=== PATIENT | female | born 1930 | race Caucasian/White ===

== ENCOUNTER 2017-03-08 13:09 | Inpatient (IN) ==
[2017-03-08 14:10] LABS: MANUAL DIFF NEEDED? NO
[2017-03-08 14:17] LABS: BASO% 0.7 % (0.0-0.8); EOS# 0.43 X1000 (0.0-0.7); EOS% 5.9 % (0.0-10.0); HEMATOCRIT 30.4 % (37.0-47.0); HEMOGLOBIN 9.4 g/dL (12.0-16.0); IMM GRAN# 0.05 X1000 (0.0-0.04); IMM GRAN% 0.7 % (0.0-0.5); LYMPH# 1.31 X1000 (1.2-3.4); LYMPH% 17.8 % (20.5-51.1); MCH 29.7 PG (27-31); MCHC 30.9 g/dL (33-37); MCV 95.9 FL (81-99); MONO# 0.94 X1000 (0.11-0.59); MONO% 12.8 % (1.7-9.3); MPV 10.7 FL (7.4-10.4); NEUT% 62.1 % (42.2-75.2); PLT 143 X1000 (130-400); RBC 3.17 XMIL (4.2-5.4)
[2017-03-08 14:47] LABS: CALCIUM 8.5 mg/dL (8.8-10.2); POTASSIUM 3.2 mmol/L (3.5-5.1); TOTAL BILIRUBIN 0.17 mg/dL (0.20-1.00); TOTAL PROTEIN 5.9 g/dL (6.3-8.3)
--- NOTE | 2017-03-08 14:51 | Diag Imaging Result Doc PS360 ---
EXAM: CHEST-2 VIEWS HISTORY: chf TECHNIQUE: COMPARISON: None. FINDINGS: The lungs are hyperexpanded. There are small bilateral pleural effusions. Patient has a left-sided pacemaker. The heart is mildly enlarged. Mild central vascular prominence. No consolidation. IMPRESSION: Mild cardiomegaly with central vascular prominence and small pleural effusions which could represent congestive failure. Electronically signed by Zaki Holman 03/08/2017 2:48 PM
[2017-03-08] MEDS ORDERED: LASIX IV ONE (16:09)
[2017-03-08 16:14] LABS: URINE CULTURE NEEDED? NO; URINE MICRO REVIEW NEEDED? NO; URINE SOURCE CLEAN CATCH
--- NOTE | 2017-03-08 16:20 | PROVIDER DOCUMENTATION ---
This chart was entered by Ted Rhoades Scribe, acting as scribe for Carl Severino MD. HPI-General Adult - General Stated Complaint: EDEMA Time Seen by Provider: 03/08/17 13:21 Source: patient, RN notes reviewed, halfway records Allergies/Adverse Reactions: Patient Allergies Allergy/AdvReac Type Severity Reaction Status Date / Time No Known Allergies Allergy Verified 03/08/17 14:12 Home Medications: Home Medication List Medication Instructions Recorded Confirmed Last Taken Type Acetaminophen 325 mg PO Q4HR 03/08/17 03/08/17 Unknown History Albuterol 2.5MG/Ipratrop 0.5MG 3 ml .SEE ORDER BID 03/08/17 03/08/17 03/08/17 09 :00 History [Duoneb (A & A)] Amiodarone [Cordarone] 200 mg PO DAILY 03/08/17 03/08/17 03/08/17 09:00 History Aripiprazole 5 mg PO DAILY 03/08/17 03/08/17 03/08/17 09:00 History Aspirin [Aspirin EC] 81 mg PO DAILY 03/08/17 03/08/17 03/08/17 08:00 History Citalopram [Celexa] 40 mg PO DAILY 03/08/17 03/08/17 03/08/17 09:00 History Diltiazem [Cardizem] 240 mg PO BID 03/08/17 03/08/17 03/08/17 09:00 History Docusate Sodium 100 mg PO BID 03/08/17 03/08/17 03/08/17 09:00 History Furosemide [Lasix] 20 mg PO DAILY 03/08/17 03/08/17 03/08/17 08:00 History Omeprazole 20 mg PO BID 03/08/17 03/08/17 03/08/17 06:00 History Polyethylene Glycol 3350 [Miralax] 17 gm PO DAILY 03/08/17 03/08/17 03/08/17 09: 00 History Potassium Chloride 8 meq PO DAILY 03/08/17 03/08/17 03/08/17 09:00 History SIMVAstatin [Zocor] 10 mg PO DAILY 03/08/17 03/08/17 03/08/17 09:00 History Torsemide 10 mg PO HS 03/08/17 03/08/17 03/07/17 20:00 History Torsemide 20 mg PO DAILY 03/08/17 03/08/17 03/08/17 09:00 History - History of Present Illness -Gen Adult Nature of Presenting Problems: patient is a 86 y/o F that presents with increase edema since having ablation and pacemaker insertion early this month. Denies chest pain or fever. Was placed on lasix but continues to have lower extremity edema Location of Pain/Injury: reports: lower extremity (bilateral lower) Pain Radiation: reports: no radiation Quality of Pain: reports: none Severity: reports: moderate Onset/Duration: reports: unsure Timing: reports: still present, constant Context/Activities at Onset: reports: other (recent pacemaker insertion) Modifying Factors: improves with: nothing Associated Symptoms: denies: chest pain, dizziness, fever/chills, genitourinary problems, nausea, shortness of breath, vomiting Similar Symptoms Previously?: Yes Recently seen or treated by another doctor?: Yes Review of Systems - Adult - REVIEW OF SYSTEMS - ADULT Constitutional: denies: chills, fever Eyes: reports: no symptoms reported Ears, Nose, Mouth & Throat: reports: no symptoms reported Cardiovascular: reports: edema. denies: chest pain, palpitations Respiratory: denies: cough, shortness of breath, wheezing Gastrointestinal: denies: abdominal pain, diarrhea, nausea, vomiting Genitourinary: reports: no symptoms reported Musculoskeletal: reports: no symptoms reported Integumentary: reports: no symptoms reported Neurological: reports: no symptoms reported Psychiatric: reports: no symptoms reported Endocrine: reports: no symptoms reported Hematologic/Lymphatic: reports: no symptoms reported Allergic/Immunologic: reports: no symptoms reported All Other Systems: Reviewed and Negative Past History - Adult - PAST MEDICAL HISTORY-ADULT Review of Records: reports: Old Records Reviewed, Nursing Assessment Review, Medications Reviewed Cardiovascular: reports: CAD, CHF, HTN, hyperlipidemia, pacemaker Respiratory: reports: COPD Gastrointestinal: reports: GERD Genitourinary: reports: kidney disease - PRIOR SURGERIES/PROCEDURES Surgical/Procedure History: reports: pacemaker, hysterectomy - IMMUNIZATION STATUS Childhood Immunizations: See Nurse Assessment Flu Vaccine: See Nurse Assessment - FAMILY HISTORY Family History: reviewed, not pertinent - SOCIAL HISTORY Smoking: quit greater than 1 year, cigarettes Living Situation: family Physical Exam-General - PHYSICAL EXAM-ADULT Initial Vital Signs Reviewed: Yes - CONSTITUTIONAL General Appearance: alert, no apparent distress - EYES Eyes: PERRL/EOMI, pink conjunctivae - HEAD, EARS, NOSE, MOUTH & THROAT HENMT: normocephalic/atraumatic, moist mucous membranes, normal ENT inspection - NECK Neck: full range of motion, normal inspection. 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 nml as tested, no motor/sensory deficits - PSYCHIATRIC Psych/Mental Status: normal mood/affect, normal thought content, normal thought process, oriented x 3 Progress - PLAN OF CARE/RESULTS Progress/Plan/Lab Results: Orders Category Date Time Status cxr [CHEST-2 VIEWS] [RAD] Stat Exams 03/08/17 13:28 Ordered CBC WITH ELECTRONIC DIFF [HEME] Stat Lab 03/08/17 13:27 Uncollected CMP [COMPREHENSIVE METABOLIC PANEL] [CHEM] Stat Lab 03/08/17 13:27 Uncollected UA NIMS W/REFLEX CULT [URINALYSIS] Stat Lab 03/08/17 13:28 Uncollected pro-bnp [PRO B-NATRIURETIC PEPTIDE] Stat Lab 03/08/17 13:27 Uncollected Result Diagrams: 03/08/17 13:32 03/08/17 13:32 - REASSESSMENT Reassessment #1 Time Reassessed: 16:18 Status: unchanged - EKG 1 Time of EKG reading by physician:: 13:30 EKG Read and Signed by:: Carl Severino EKG Interpretation (*Must complete 3 of following elements*): Abnormal Rate: 80 Rhythm: Ventricular Paced rhythm QRS: normal ST Wave: normal - CONSULTS/PCP/HOSPITALIST Notification #1 *Consult/PCP/Hospitalist*: Dr Haynes Time Discussed: 16:18 Consult Disposition: Admit (Pt of Dr Nguyen, in halfway and edema getting worse) Departure - Departure Date of Disposition Decision: 03/08/17 Time of Disposition Decision: 16:19 DIAGNOSIS: CHF (congestive heart failure) Qualifiers: Congestive heart failure type: combined Congestive heart failure chronicity: acute on chronic Qualified Code(s): I50.43 - Acute on chronic combined systolic (congestive) and diastolic (congestive) heart failure Disposition: ADMITTED INPATIENT 09 Certified Medical Emergency: Emergent Condition: Stable Referrals and Follow-Ups: Javier Inman [Primary Care Provider] - - Critical Care Note This patient required my direct & personal management of CC.: No This chart was documented by the indicated scribe, (Ted Rhoades, Scribe) and accurately reflects the services I performed and decisions made by me, Carl Severino MD, as attested by the provider's signature.
[2017-03-08] MEDS ORDERED: TYLENOL PO PRN (16:53)
[2017-03-08] MEDS ORDERED: ZOFRAN IV PRN (16:53)
[2017-03-08 16:55] LABS: BILIRUBIN URINE NEGATIVE (NEGATIVE); BLOOD URINE NEGATIVE (NEGATIVE); COLOR STRAW; GLUCOSE URINE NEGATIVE (NEGATIVE); LEUKOCYTES URINE NEGATIVE (NEGATIVE); NITRITE URINE NEGATIVE (NEGATIVE); PH URINE 5.5; PROTEIN URINE NEGATIVE (NEGATIVE); SP GRAVITY URINE 1.008; TURBIDITY URINE CLEAR (CLEAR); UR EPITHELIAL CELLS <10 /HPF (<10); URINE BACTERIA NEGATIVE /HPF; URINE RBC <10 /HPF (<10); URINE WBC <10 /HPF (<10); UROBILINOGEN URINE NORMAL (NORMAL)
[2017-03-08] MEDS ORDERED: KLOR-CON PO ONE (17:15)
--- NOTE | 2017-03-08 18:05 | HISTORY AND PHYSICAL ---
CHIEF COMPLAINT: Bilateral lower extremity edema and pain. HISTORY OF PRESENT ILLNESS: This is an 86-year-old, female with a past medical history of COPD, hypertension, CHF, hypoglycemia, pacemaker placement secondary to arrhythmia, came to the emergency department with a chief complaint of bilateral lower extremity edema and pain. As per the patient, this patient was admitted on February 01, 2017 at [facility] secondary to shortness of breath and she was discharged on the January. But again, she started having swelling at the beginning of this month. She went to see her primary circuit manager, Dr. Nguyen for the very 1st time last Monday. He adjusted her medications and he recommended to come to the emergency department if the swelling gets worse. She has been taking her medications as prescribed and even though she is doing that, she has more swelling and now she is having pain, to the point that she cannot walk. Today she is not complaining of chest pain or shortness of breath. No nausea. No vomiting. No dizziness. No constipation. No diarrhea. We do not have records here in this hospital of this patient. I will consult Dr. Nguyen. I will get an echocardiogram and I will start this patient with gentle diuresis since she has kidney injury. REVIEW OF SYSTEMS: All the 14 points of review of systems were evaluated and all negative except as per HPI. PAST MEDICAL HISTORY: CHF, COPD, hypertension, hypoglycemia, and pacemaker placement on February 21, 2017 secondary to arrhythmia. Blood transfusion a long time ago after hysterectomy. FAMILY HISTORY: Father with lung cancer. Mother with diabetes and seizures. Siblings, hypertension. ALLERGIES: Seasonal allergies. PAST SURGICAL HISTORY: Hemorrhoidectomy, hysterectomy, eye surgery for cataracts, pacemaker placement on February 21, 2017. SOCIAL HISTORY: She states that she used to be a secondhand smoker. Both dad and mom used to smoke in front of her. No drugs. No alcohol. PHYSICAL EXAMINATION: VITAL SIGNS: Temperature 97.8 degrees, pulse 80, respiratory rate 18, blood pressure 149/69, oxygen saturation 95% on room air. HEENT: Head normocephalic. No trauma. PERRLA. NECK: Supple. No JVD. No masses. Central trachea. CHEST: Bilateral lower lung rales. She has a pacemaker in the left upper thorax. No distress. CARDIOVASCULAR: RRR with a 2+ systolic murmur. ABDOMEN: Soft, nontender, nondistended. No hepatosplenomegaly. EXTREMITIES: Three to 4+ lower extremity edema with bilateral lower leg redness and pain to palpation. LABORATORY: WBC 7.3, hemoglobin 9.4, hematocrit 30.4, platelets 143,000. Sodium 143, potassium 3.2, chloride 97, bicarbonate 35, BUN 45, creatinine 1.9, glucose 121, calcium 8.5. BNP 3,935. Albumin 3. ASSESSMENT AND PLAN: 1. Fluid overload, likely secondary to a combination off congestive heart failure and probably kidney injury. We do not have any records here in the hospital from previous admissions. I will get an echocardiogram, an EKG, and also a urinalysis. We need to try to get some information from [facility] as well. She already received 60 mg of furosemide in the emergency department. I will continue with 40 IV daily and I will wait for cardiology's recommendations. 2. Kidney injury. Like I mentioned before, I do not have any records. Will diurese this patient gently. I will wait for the urinalysis. Will monitor. 3. Chronic obstructive pulmonary disease. Not in exacerbation. Will monitor. 4. Hypertension. I will continue with home medication. 5. Congestive heart failure. This patient is on furosemide, torsemide at home but apparently this treatment has been failing. I stopped for now the torsemide and I will continue with furosemide IV. Cardiology has been consulted. 6. History of arrhythmia with pacemaker placement. At this point I do not know what kind of arrhythmia she had before. She is also on diltiazem and amiodarone. Will continue with the same management for now. 7. History of hypoglycemia. Will monitor the blood sugar daily. 8. Hypokalemia. I will replace the potassium. Also she has been on potassium p.o. at home. 9. Possible dyslipidemia. I will continue with statin. 10. Constipation. Continue with stool softener. Further recommendations depending on her hospital course. cc: Charlie Babb MD
[2017-03-08] MEDS: COLACE PO SCH (20:32)
[2017-03-08] MEDS: HEPARIN SUBQ SCH (20:32)
--- NOTE | 2017-03-09 05:23 | EKG Report ---
Test Performed on : 03/08/2017 5:47:23 PM Test Reason : arrhytmia Blood Pressure : / mmHG Vent. Rate : 080 BPM Atrial Rate : 092 BPM P-R Int : 000 ms QRS Dur : 158 ms QT Int : 556 ms P-R-T Axes : 000 -64 081 degrees QTc Int : 641 ms Ventricular-paced rhythm Biventricular pacemaker detected Abnormal ECG When compared with ECG of 08-MAR-2017 13:30, (Unconfirmed) No significant change was found Confirmed by Kevin MICHAUD, Keanu Ray ([id number]) on 03/09/2017 3:00:08 PM
--- NOTE | 2017-03-09 05:32 | EKG Report ---
Test Performed on : 03/08/2017 1:30:43 PM Test Reason : No Order in PPS Blood Pressure : / mmHG Vent. Rate : 080 BPM Atrial Rate : 080 BPM P-R Int : 000 ms QRS Dur : 160 ms QT Int : 490 ms P-R-T Axes : 000 -86 089 degrees QTc Int : 565 ms Ventricular-paced rhythm Abnormal ECG No previous ECGs available Unconfirmed Result
[2017-03-09 06:58] LABS: MANUAL DIFF NEEDED? NO
[2017-03-09 07:18] LABS: BASO% 0.9 % (0.0-0.8); HEMATOCRIT 26.3 % (37.0-47.0); IMM GRAN# 0.03 X1000 (0.0-0.04); IMM GRAN% 0.5 % (0.0-0.5); LYMPH# 1.08 X1000 (1.2-3.4); LYMPH% 18.8 % (20.5-51.1); MCH 29.3 PG (27-31); MCHC 30.4 g/dL (33-37); MCV 96.3 FL (81-99); MONO# 0.73 X1000 (0.11-0.59); MONO% 12.7 % (1.7-9.3); NEUT% 60.1 % (42.2-75.2); PLT 138 X1000 (130-400); RBC 2.73 XMIL (4.2-5.4)
[2017-03-09 07:24] LABS: HDL 80 mg/dL (45-65); LDL 67 mg/dL; TRIGLYCERIDES 84 mg/dL (35-135); VLDL 17 mg/dL
[2017-03-09 07:36] LABS: ALBUMIN 2.7 g/dL (3.5-5.0); CALCIUM 8.4 mg/dL (8.8-10.2); POTASSIUM 2.9 mmol/L (3.5-5.1); TOTAL BILIRUBIN 0.18 mg/dL (0.20-1.00); TOTAL PROTEIN 5.2 g/dL (6.3-8.3)
[2017-03-09] MEDS ORDERED: KLOR-CON PO ONE (07:54)
[2017-03-09] MEDS ORDERED: CARDIZEM CD PO SCH (09:00)
[2017-03-09] MEDS: LASIX IV SCH (09:08)
[2017-03-09] MEDS: COLACE PO SCH ×2 (09:08→22:49)
[2017-03-09] MEDS: ASPIRIN EC PO SCH (09:08)
[2017-03-09] MEDS: CORDARONE PO SCH (09:08)
[2017-03-09] MEDS: HEPARIN SUBQ SCH ×2 (09:08→22:49)
[2017-03-09] MEDS: CELEXA PO SCH (09:08)
[2017-03-09] MEDS: ZOCOR PO SCH (09:08)
[2017-03-09] MEDS: MIRALAX PO SCH (09:09)
[2017-03-09] MEDS: ABILIFY PO SCH (09:09)
[2017-03-09] MEDS: DUONEB (A & A) INH PRN ×3 (10:09→20:01)
--- NOTE | 2017-03-09 10:30 | CONSULTATION ---
DATE OF CONSULTATION: 03/09/2017 REASON FOR CONSULTATION: Cardiology was consulted for heart failure and pedal edema. HISTORY OF PRESENT ILLNESS: Ms. Yumiko Montelongo is an 86-year-old, lady who was recently admitted and discharged from [facility]. She had a permanent pacemaker implantation. She has chronic atrial fibrillation and COPD. When I saw her a couple of days back, she was noted to have increasing pedal edema. At that time, I had given her Zaroxolyn 2 doses and increased her dose of torsemide. When I had seen her, she had no significant shortness of breath. However, she was wheelchair bound. She was in the rehab facility. She is admitted with complaints of bilateral lower extremity edema and pain which had worsened, in addition to shortness of breath. She recently had a permanent pacemaker implantation as well. Cardiac history as below. She is not anticoagulated even though she has atrial fibrillation, given her history of frequent falls. At the time of my examination, the patient was with her daughter. She did not complain of any chest pain. REVIEW OF SYSTEMS: A 14 point review of systems was done. GI System: There is no history of nausea, vomiting, diarrhea. There is no history of hematemesis or melena. Central Nervous System: No focal weakness to suggest a CVA or TIA. Genitourinary System: There is no dysuria or hematuria. Respiratory System: There is no history of cough or hemoptysis. PAST MEDICAL HISTORY: 1. Atrial fibrillation. On 02/02/2017, she underwent an ablation of the AV node and status post permanent pacemaker implantation with a [employer] device on 02/21/2017. 2. Chronic pedal edema. 3. Diastolic heart failure. 4. COPD. 5. Shortness of breath. 6. Hypertension. 7. Hyperlipidemia. 8. Diabetes. 9. Chronic renal insufficiency. 10. Carotid bruits. 11. Bilateral conductive hearing loss. 12. Personal history of frequent falls. 13. Hemorrhoidectomy. 14. Hysterectomy. 15. Cataract surgery. SOCIAL HISTORY: She states she used to be a secondhand smoker. There is no history of alcohol abuse. HOME MEDICATIONS: Included amiodarone 200 mg a day, aspirin 81 mg a day, diltiazem 240, torsemide 20 + 10, Zocor 10, Abilify 5, Celexa, Prilosec 20, milk of magnesia, and recent 2 doses of metolazone. PHYSICAL EXAMINATION: Vital Signs: Blood pressure was 139/54. Cardiovascular System: Normal jugular venous pressure. First and second heart sounds were heard. There is no S3 gallop. Respiratory System: Distant breath sounds. Scattered wheeze. Abdomen: Soft, nontender. There was no guarding or rigidity. Bowel sounds were heard. Central Nervous System: Alert and was moving all 4 extremities. Extremities: Examination of extremities revealed pitting pedal edema up to her rodas. In addition, there was tenderness noted on both lower extremities. HEENT: Atraumatic. Pupils were reacting to light. LABORATORY EXAMINATION: WBC 5.75, hemoglobin 8, hematocrit 26, platelet count 138,000. Chemistry: Sodium 144, potassium 2.9, BUN 46, creatinine 1.8. ProBNP 3935. Albumin was low at 2.7. HDL 80. ASSESSMENT AND PLAN: Ms. Yumiko Montelongo is an 86-year-old, lady with history of multiple medical problems in addition to a history of atrial fibrillation status post atrioventricular node ablation and permanent pacemaker implantation, history of diastolic heart failure, hypertension, frequent falls. Comes in with complaints of persistent increasing pedal edema and shortness of breath. Chest x-ray, mild effusion was also noted. Patient was started on intravenous Lasix. PROBLEM LIST: 1. She has significant hypokalemia that could have been because off the metolazone which was given as an outpatient for 2 doses, started recently. We will replete with potassium chloride IV 40 mEq and I will check her BMP later this after and in the morning. 2. Chronic pedal edema, could be multifactorial given anemia as well as dependent edema. Regardless, we will check DVT to make sure there is no deep vein thrombosis, and continue with the Lasix which started at IV 40. This could also be related to her hemoglobin being low. Hemoglobin and hematocrit were 8 and 26.3. She may benefit from a unit of blood transfusion but, however, we will check a BMP in the morning. She is not on any anticoagulation therapy. There is no obvious bleeding. She is also hypoalbuminemic. This, if corrected, should also help with her edema. 3. We will get an echocardiogram to assess cardiac and valvular function. 4. As far as medications are concerned, she has recently been started on diltiazem. We will discontinue diltiazem in the event that it could be a factor to cause her pedal edema. We will put her on Toprol-XL. Thank you for the consult. We will follow hospital course. cc: Keven Nguyen MD
[2017-03-09] MEDS ORDERED: ALBUMIN 25% IV ONE (11:07)
[2017-03-09] MEDS ORDERED: POTASSIUM CHLORIDE 20 MEQ/SWI 20 MEQ/100 ML IVPB IV SCH (12:00)
[2017-03-09] MEDS: POTASSIUM CHLORIDE 20 MEQ/SWI 20 MEQ/100 ML IVPB IV SCH ×2 (12:35→14:34)
--- NOTE | 2017-03-09 14:51 | PROGRESS NOTE ---
DATE: 03/09/2017 SUBJECTIVE: This patient is resting comfortably in bed. She is not complaining of shortness of breath. She is still complaining of pain at the level of the lower extremity with swelling. Family members at the bedside. No acute events overnight. OBJECTIVE: Vital Signs: Temperature 98.1 degrees, pulse 84, respiratory rate 20, blood pressure 139/54, oxygen saturation 95% on 2 L of nasal cannula. HEENT: Head normocephalic. No trauma. PERRLA. Neck: Supple. No JVD. No masses. Central trachea. Chest: Bilateral lower lung rales. She has a pacemaker in the left upper thorax, no distress. Cardiovascular: RRR. 2+ systolic murmur. Abdomen: Soft, nontender, nondistended. No hepatosplenomegaly. Obese. Extremities: There is 3+ lower extremity edema bilaterally with leg redness and pain to palpation. LABORATORY: WBC 5.7, hemoglobin 8, hematocrit 26.3, platelet 138. Sodium 144, potassium 2.9, chloride 100, bicarbonate 37, BUN 46, creatinine 1.8, glucose 102, calcium 8.4, albumin 2.7. ASSESSMENT: 1. Fluid overload. This can be multifactorial, likely a combination of congestive heart failure and kidney injury. We do not have any records yet from previous hospitalization in another hospital. Pending echocardiogram, Cardiology Department is following this patient. I will continue with Lasix intravenous daily. 2. Kidney injury, stable. We will continue with the same management for now. The creatinine is about the same compared with yesterday. 3. Chronic obstructive pulmonary disease not in exacerbation. We will monitor. 4. Hypertension. Continue with home medications. Diltiazem has been stopped and replaced with Toprol-XL. 5. Congestive heart failure. The patient is on furosemide intravenous. Cardiology Department is following this patient pending echocardiogram results. 6. History of arrhythmia with pacemaker placement. At this point, I do not know what kind of arrhythmia she had before. For now, we will continue with amiodarone and Toprol-XL. 7. History of hypoglycemia. We will monitor. 8. Hypokalemia. I replaced the potassium today 40 mEq intravenous and oral. 9. Possible dyslipidemia. Continue with statins. 10. Constipation. Continue with stool softener. PLAN: Because of the lower extremity edema and pain, we will ask for a Doppler ultrasound of the lower extremities to rule out DVT. She will get albumin and that probably will help with her edema. Since the hemoglobin dropped from 9.4 to 8, I will ask for occult blood in the stool to rule out GI bleed. cc: Charlie Babb MD
[2017-03-09 16:02] LABS: CALCIUM 8.6 mg/dL (8.8-10.2); POTASSIUM 4.4 mmol/L (3.5-5.1)
--- NOTE | 2017-03-09 16:07 | ECHO REPORT ---
ORDER DATE: 03/09/2017 MEASUREMENTS: 1. Left ventricular end-diastolic diameter 3.5, end-systolic diameter 2.6, septal thickness 1.4, posterior wall thickness 1.4, left atrium 4.7, aortic root 3.2. SUMMARY: 1. Fair quality study. 2. Aortic valve is trileaflet and demonstrates mild to moderate sclerosis with mildly reduced but visibly adequate aortic valve opening on 2-dimensional images. Peak gradient across aortic valve is 18 mmHg with a mean gradient of 10 mmHg suggesting minimal aortic stenosis. Mild mitral annular calcification is demonstrated. There is very mild mitral regurgitation. Tricuspid and pulmonic valves are without structural abnormality with mild tricuspid regurgitation and trace tricuspid regurgitation, and pulmonic valves are without structural abnormality with mild tricuspid regurgitation and trace pulmonic insufficiency. The estimated systolic PA pressure by Doppler is 35 to 40 mmHg. The aortic root is normal in size. 3. Normal left ventricular chamber size with mild concentric left hypertrophy is demonstrated. Estimated left ejection fraction appears to be greater than 65%. No regional wall motion abnormalities are evident. Doppler suggests grade 1 left ventricular diastolic dysfunction. Left atrium is mildly enlarged. Right atrium and right ventricle are normal in size with normal right ventricular systolic function. 4. No pericardial effusion. 5. Appearance of inferior vena cava suggests normal central venous pressure. 6. Sinus rhythm during study. CONCLUSIONS: 1. Aortic valve sclerosis with minimal stenosis. 2. Mild mitral annular calcification with very mild mitral regurgitation. 3. Mild tricuspid regurgitation with estimated systolic PA pressure of 35-40 mmHg. 4. Mild concentric left hypertrophy with estimated ejection fraction at least 65%. 5. Grade 1 left ventricular diastolic dysfunction. 6. Mild left atrial enlargement. 7. Pacemaker lead evident in right ventricle. cc: MD Charlie Epps MD
[2017-03-10 07:18] LABS: MANUAL DIFF NEEDED? NO
[2017-03-10 07:28] LABS: BASO% 1.5 % (0.0-0.8); EOS# 0.36 X1000 (0.0-0.7); EOS% 4.9 % (0.0-10.0); HEMATOCRIT 27.1 % (37.0-47.0); HEMOGLOBIN 8.1 g/dL (12.0-16.0); IMM GRAN# 0.07 X1000 (0.0-0.04); LYMPH# 1.09 X1000 (1.2-3.4); LYMPH% 14.9 % (20.5-51.1); MCHC 29.9 g/dL (33-37); MCV 97.1 FL (81-99); MONO# 0.97 X1000 (0.11-0.59); MONO% 13.2 % (1.7-9.3); NEUT% 64.5 % (42.2-75.2); PLT 149 X1000 (130-400); RBC 2.79 XMIL (4.2-5.4)
[2017-03-10 07:45] LABS: CALCIUM 8.7 mg/dL (8.8-10.2); POTASSIUM 4.1 mmol/L (3.5-5.1)
[2017-03-10] MEDS: DUONEB (A & A) INH PRN ×3 (08:14→23:22)
[2017-03-10] MEDS: LASIX IV SCH ×2 (08:38→21:10)
[2017-03-10] MEDS ORDERED: LASIX IV ONE (09:04)
--- NOTE | 2017-03-10 09:06 | Diag Imaging Result Doc PS360 ---
EXAM: CHEST-PORTABLE HISTORY: Shortness of breath TECHNIQUE: COMPARISON: 03/08/2017 FINDINGS: There is a left-sided pacemaker. There is vascular distention. There may be underlying infiltrates in the lung bases. No pleural effusions identified. IMPRESSION: Pulmonary edema with possible underlying basilar infiltrates. Electronically signed by Zaki Holman 03/10/2017 9:04 AM
--- NOTE | 2017-03-10 09:48 | EKG Report ---
Test Performed on : 03/10/2017 09:00:24 AM Test Reason : SOB Blood Pressure : / mmHG Vent. Rate : 080 BPM Atrial Rate : 227 BPM P-R Int : 000 ms QRS Dur : 146 ms QT Int : 520 ms P-R-T Axes : 000 -64 074 degrees QTc Int : 599 ms Ventricular-paced rhythm Biventricular pacemaker detected Abnormal ECG When compared with ECG of 08-MAR-2017 17:47, No significant change was found Confirmed by Kevin MICHAUD, Keanu Ray ([id number]) on 03/10/2017 11:18:11 AM
[2017-03-10] MEDS: MIRALAX PO SCH (10:26)
[2017-03-10] MEDS: COLACE PO SCH ×2 (10:26→20:15)
[2017-03-10] MEDS: ABILIFY PO SCH (10:26)
[2017-03-10] MEDS: KLOR-CON PO SCH (10:26)
[2017-03-10] MEDS: CELEXA PO SCH (10:27)
[2017-03-10] MEDS: CORDARONE PO SCH (10:27)
[2017-03-10] MEDS: ASPIRIN EC PO SCH (10:27)
[2017-03-10] MEDS: TOPROL XL PO SCH (10:27)
[2017-03-10] MEDS: ZOCOR PO SCH (10:27)
--- NOTE | 2017-03-10 11:33 | Extremity Venous Study ---
PROCEDURE NAME: Venous U/S Bilateral Legs - 03/09/2017 REQUESTING PHYSICIAN: Dr. Nguyen. PROFESSOR OF MATHEMATICS: Heron. INDICATIONS: Bilateral lower extremity edema. PROCEDURE: Bilateral lower extremity venous duplex color-flow imaging. EQUIPMENT: Makeblockid E9 ultrasound system with a 9 LD transducer. FINDINGS: Images of bilateral lower extremity venous systems were obtained in both sagittal and transverse planes. Doppler was used to evaluate veins for spontaneity, phasicity, respiratory excursion, and digital augmentation. RESULTS: Normal venous compression, normal venous flow. No obvious superficial or deep venous thrombosis noted. There is some mild pulsatility noted in the bilateral common femoral veins, which may represent a central cardiac issue. INTERPRETATION: No obvious superficial or deep venous thrombosis noted to bilateral lower extremities. There is some mild pulsatility noted to bilateral common femoral veins, which may represent a central cardiac issue. I would recommend handling this clinically. cc: MD Keven Ferro MD
[2017-03-10] MEDS: XANAX PO PRN ×2 (11:50→23:44)
[2017-03-10] MEDS ORDERED: NS 500 ML ONE (12:22)
--- NOTE | 2017-03-10 15:03 | PROGRESS NOTE ---
DATE: 03/10/2017 SUBJECTIVE: When I evaluated this patient she was tachypneic, she has some rales at the level of the mid and lower lungs, and also she looks anxious. I went ahead and I put this patient on Xanax 0.25 mg p.o. b.i.d., and also I gave her an extra dose of furosemide, and after that, this patient felt better. OBJECTIVE: Vital Signs: Temperature 98.4 degrees, pulse 78, respiratory rate 22, blood pressure 143/67, oxygen saturation 100% on 2 L of nasal cannula. HEENT: Normocephalic. No trauma. PERRLA. Neck: Supple. No JVD. No masses. Central trachea. Chest: Bilateral mid and lower lungs rales. She has a pacemaker at the level of the left upper thorax. No distress. Cardiovascular: RRR, 2+ systolic murmur. Abdomen: Soft, nontender, nondistended. No hepatosplenomegaly. Obese. Extremities: 3+ lower extremity edema bilaterally with redness and pain to palpation. LABORATORY: WBC 7.3, hemoglobin 8.1, hematocrit 27.1, platelets 149,000. Sodium 144, potassium 4.1, chloride 99, bicarbonate 32, BUN 48, creatinine 1.8, glucose 105, calcium 8.7. ASSESSMENT AND PLAN: 1. Pulmonary edema. I gave her an extra dose of furosemide today, and now she feels better, we will continue with the same management. Cardiology Department is following this patient. 2. Likely diastolic heart failure. We will continue with diuresis, Cardiology Department is following this patient. 3. Kidney injury. Stable. We will continue with the same management for now. The creatinine is about the same compared with the previous days. 4. Chronic obstructive pulmonary disease, not in exacerbation. We will monitor. 5. Hypertension. Continue with home medication. Diltiazem has been stopped and replaced with Toprol-XL. 6. History of atrial fibrillation, she underwent an ablation of the atrioventricular node and status post permanent pacemaker implantation with [employer] device on 02/21/2017. 7. History of hypoglycemia. We will monitor. 8. Hypokalemia. Resolved. 9. Dyslipidemia. Continue with statins. 10. Constipation. Continue with stool softener. 11. Anxiety. I placed this patient on Xanax low dose. cc: Charlie Babb MD
--- NOTE | 2017-03-10 16:00 | Diag Imaging Result Doc PS360 ---
EXAM: US RENAL 2 (RETROPER) COMPLETE HISTORY: chloe/arf TECHNIQUE: Transabdominal COMMENT: The right kidney is 9.1 x 3.6 x 3.4 cm the left is 9.1 x 4.6 x 4.5 cm. There is a cyst in the left kidney measuring 7.2 cm in diameter. The bladder is not distended. There is no evidence of hydronephrosis. IMPRESSION: Left renal cyst. Electronically signed by Dennys Sylvester 03/10/2017 3:58 PM
[2017-03-10] MEDS: HEPARIN SUBQ SCH ×2 (16:20→20:17)
[2017-03-10 17:58] LABS: URINE MICRO REVIEW NEEDED? NO; URINE SOURCE CATH
[2017-03-10 18:06] LABS: BILIRUBIN URINE NEGATIVE (NEGATIVE); BLOOD URINE LARGE (NEGATIVE); COLOR YELLOW; GLUCOSE URINE NEGATIVE (NEGATIVE); LEUKOCYTES URINE TRACE (NEGATIVE); NITRITE URINE NEGATIVE (NEGATIVE); PROTEIN URINE TRACE mg/dL (NEGATIVE); TURBIDITY URINE CLEAR (CLEAR); UR EPITHELIAL CELLS <10 /HPF (<10); URINE BACTERIA NEGATIVE /HPF; URINE RBC TNTC /HPF (<10); URINE WBC <10 /HPF (<10); UROBILINOGEN URINE NORMAL (NORMAL)
[2017-03-10 18:23] LABS: UR CREAT RANDOM 64.1 mg/dL (11-20); UR PROT RANDOM 15.3 mg/dL
--- NOTE | 2017-03-10 18:39 | CONSULTATION ---
DATE OF CONSULTATION: 03/10/2017 REASON FOR CONSULTATION: Acute kidney injury versus chronic kidney injury. HISTORY OF PRESENT ILLNESS: Ms. Montelongo is an 86-year-old, white female with obesity, diabetes, hypertension, COPD. She has been residing in a nursing facility in [place]. She has had some problems with swelling that has been chronic but modest. She underwent pacemaker placement on the 21 of February following a previous admission in late January at [facility] for shortness of breath. Following that pacemaker placement she has had progressively worsening swelling which did not wilbert with any intervention. They saw Dr. Nguyen in the office who prescribed oral diuretics but failing that he advised her to come to the hospital. She was brought to the emergency room on the and subsequently admitted. Her initial chest x-ray from the demonstrated mild cardiomegaly and vascular prominence with small effusions. No overt pulmonary edema was noted. She underwent echocardiogram the following morning which disclosed an LVEF of 65% with PA pressures in the 35-40% range. Since that time she has been treated with gentle diuretics and is roughly 2 L negative though her intake is poorly recorded. In this context her creatinine has been abnormal since admission but stable at 1.8 with BUN in the mid 40s. She underwent kidney ultrasound today which demonstrated small bilateral kidneys at 9.1 cm bilaterally but no hydronephrosis or other acute findings. We were asked to see her to assist with her management. PAST MEDICAL HISTORY: As above. CURRENT MEDICATIONS: Acetaminophen, albuterol, ipratropium, alprazolam, amiodarone, Abilify, aspirin, citalopram, docusate, heparin, metoprolol, ondansetron, polyethylene glycol, potassium chloride, simvastatin, albumin x1. ALLERGIES: None. SOCIAL HISTORY: As above. She is attended to by her daughter. No alcohol or tobacco. FAMILY HISTORY: Noncontributory. REVIEW OF SYSTEMS: Noncontributory. PHYSICAL EXAMINATION: Vital Signs: Blood pressure 143/67, heart rate 80, respirations 22, afebrile. General: She is an obese, white female, sitting at 45 degrees, in no acute distress. She is hard of hearing. Skin: Warm and dry with some bruising and ecchymoses. Conjunctivae are pink. Pupils are equal. Oropharynx is moist. Neck: Veins are distended. Heart: Irregular. Chest: Chest and left arm are in a sling. Lungs: Difficult to examine but no crackles. Abdomen: Obese and soft. Bowel sounds are present. No organomegaly. Extremities: 3+ edema. No clubbing or cyanosis. Left arm greater than right arm. Legs are symmetrical. Neurologic Examination: Grossly nonfocal. LABORATORY DATA: Sodium 144, potassium 4.1, chloride 99, bicarbonate 32, BUN 48, creatinine 1.8, albumin 2.7 yesterday. IMPRESSION: Chronic kidney disease stage 3B. I do not have any old data for comparison but the stability of her labs since admission as well as her renal ultrasound results certainly suggest that this is a chronic condition. Her volume overload is a consequence of her chronic kidney disease and her cardiac disease as well as dietary indiscretion while she has been in the [facility]. Her albumin is low and she is certainly prone to significant third spacing on the basis of her low albumin. As such, I will add albumin and furosemide 80 mg twice daily, and observe her response over the weekend. We will check urine electrolytes, urea. No other studies are required. cc: Brett Neff MD
[2017-03-10] MEDS: ALBUMIN 25% IV SCH (18:48)
[2017-03-10] MEDS ORDERED: AYR NASAL SPRAY NAS PRN (18:54)
[2017-03-11] MEDS: DUONEB (A & A) INH PRN ×5 (04:04→22:46)
[2017-03-11] MEDS: LASIX IV SCH ×2 (04:26→17:44)
[2017-03-11] MEDS ORDERED: XANAX PO ONE (05:18)
[2017-03-11 06:34] LABS: HEMATOCRIT 24.7 % (37.0-47.0); HEMOGLOBIN 7.5 g/dL (12.0-16.0); MCH 29.6 PG (27-31); MCHC 30.4 g/dL (33-37); MCV 97.6 FL (81-99); MPV 10.9 FL (7.4-10.4); RBC 2.53 XMIL (4.2-5.4)
[2017-03-11 07:05] LABS: ALBUMIN 3.8 g/dL (3.5-5.0); CALCIUM 9.4 mg/dL (8.8-10.2); POTASSIUM 3.6 mmol/L (3.5-5.1)
[2017-03-11] MEDS ORDERED: NS 250 ML IV PRN (08:54)
[2017-03-11] MEDS: ABILIFY PO SCH (09:10)
[2017-03-11] MEDS: ZOCOR PO SCH (09:11)
[2017-03-11] MEDS: CELEXA PO SCH (09:11)
[2017-03-11] MEDS: HEPARIN SUBQ SCH ×2 (09:11→20:26)
[2017-03-11] MEDS: TOPROL XL PO SCH (09:11)
[2017-03-11] MEDS: ASPIRIN EC PO SCH (09:11)
[2017-03-11] MEDS: COLACE PO SCH ×2 (09:11→20:26)
[2017-03-11] MEDS: ALBUMIN 25% IV SCH (09:11)
[2017-03-11] MEDS: KLOR-CON PO SCH (09:11)
[2017-03-11] MEDS: MIRALAX PO SCH (09:11)
[2017-03-11] MEDS: CORDARONE PO SCH (09:11)
[2017-03-11] MEDS: XANAX PO PRN ×2 (12:42→23:37)
[2017-03-11] MEDS ORDERED: LASIX IV ONE (13:06)
[2017-03-11] MEDS ORDERED: LASIX ONE (13:06)
--- NOTE | 2017-03-11 13:06 | PROGRESS NOTE ---
DATE: 03/11/2017 SUBJECTIVE: This patient is resting comfortably in bed. She is still a little bit tachypneic, but she is not complaining of shortness of breath at this moment. Will continue with Xanax and I will continue with the same dose of furosemide as per Nephrology Department. It looks like she is getting better. OBJECTIVE: Vital Signs: Temperature 98.1 degrees, pulse 85, respiratory rate 20, blood pressure 171/64, oxygen saturation 97% on 3L nasal cannula. HEENT: Head normocephalic. No trauma. PERRLA. Neck: Supple. No JVD. No masses. Central trachea. Chest: Bilateral lower lung rales, but compared with yesterday, she is much better. She has a pacemaker at the level of the left upper thorax. No distress. Cardiovascular: RRR. A 2+ systolic murmur. Abdomen: Soft, nontender, nondistended. No hepatosplenomegaly. Obese. Extremity: Lower extremity edema 3+ bilaterally with redness and pain to palpation. LABORATORY: WBC 8.5, hemoglobin 7.5, hematocrit 24.7, platelets 164,000. Sodium 145, potassium 3.6, chloride 97, bicarbonate 36, BUN 50, creatinine 1.8, glucose 121, calcium 9.4, albumin 3.8. ASSESSMENT AND PLAN: 1. Pulmonary edema. This is getting better. We will continue with the same dose of furosemide for today. Cardiology Department is following this patient closely. 2. Likely diastolic heart failure. Continue with diuresis. 3. Kidney injury, stable. Probably, this is her baseline. We do not have previous records. 4. Chronic obstructive pulmonary disease, not in exacerbation. We will monitor. Continue with breathing treatment. 5. Hypertension. Continue with home medication. Diltiazem has been stopped and replaced with Toprol-XL. 6. History of atrial fibrillation. She underwent and ablation of the AV node and status post permanent pacemaker implantation with [employer] device on 02/21/2017. 7. Hypokalemia, resolved. 8. Dyslipidemia. Continue with statins. 9. Constipation. Continue with stool softener. 10. Anxiety. I will place this patient on Xanax low dose. 11. Anemia. This patient's hemoglobin is 7.5. I will transfuse this patient with 1 PRBC. cc: Charlie Babb MD
[2017-03-11 13:18] LABS: ALLEN TEST YES; BE 12.9 mmoll (-3.0-3.0); BLOOD TYPE ARTERIAL; DRAW SITE R RADIAL; METHB 1.2 % (0.0-1.5); O2(CT) 12.8 mL/dL (15.0-23.0); PO2(98.6) 136 mmHg (60-100); SAMPLE BLOOD; SAO2 99.5 % (95.0-100.0); THB 9.2 g/dL (11.5-17.4)
[2017-03-11 13:20] LABS: MODALITY NRB
[2017-03-11 13:24] LABS: PCO2(98.6) 125 mmHg (35-45); pH(98.6) 7.16 (7.35-7.45)
--- NOTE | 2017-03-11 13:24 | Diag Imaging Result Doc PS360 ---
EXAM: CHEST-PORTABLE HISTORY: sob TECHNIQUE: AP portable at 1310 COMMENT: There is cardiomegaly and bilateral basilar pulmonary edema. The pulmonary vascularity is engorged centrally. Compared to 03/10/2017 there has been no significant change. IMPRESSION: CHF stable since previous study. Electronically signed by Dennys Sylvester 03/11/2017 1:22 PM
--- NOTE | 2017-03-11 13:48 | PROGRESS NOTE ---
DATE: 03/11/2017 SUBJECTIVE: She had some shortness of breath overnight, but it is better this morning. No chest pain. OBJECTIVE: Vital Signs: Blood pressure 171/64, heart rate 85, respirations 20, afebrile. Intake none recorded; output 2 L. General: On physical exam, no acute distress. Skin: Warm and dry. Eyes: Conjunctivae are pink. Pupils are equal and round. Neck: Neck veins are not appreciated today. Heart: Regular without gallops or murmurs. Lungs: Have equal breath sounds. No crackles or wheezes. Abdomen: Soft and nontender. Bowel sounds are present. Extremities: Have 2+ edema. No clubbing or cyanosis. Left arm greater than right. LABORATORY DATA: Sodium 145, potassium 3.6, chloride 97, bicarbonate 36, BUN 50, creatinine 1.8, hemoglobin 7.5. IMPRESSION: 1. Volume overload. She received albumin yesterday and I increased her furosemide dose. I will cancel any further albumin because her albumin is now 3.8, but will continue the 80 mg intravenous twice daily of furosemide through tomorrow. Her bicarbonate is rising and this may be a consequence of diuresis. Again, we will observe, but plan to continue her diuretics as she is still significantly volume overloaded. 2. Chronic kidney disease, unchanged. 3. Anemia. We will check iron stores, B 12, folate, and stool sample. Replace as needed. Will check an erythropoietin level. cc: Brett Neff MD
[2017-03-12] MEDS: DUONEB (A & A) INH PRN ×6 (02:48→23:06)
[2017-03-12] MEDS: LASIX IV SCH ×2 (05:04→16:41)
[2017-03-12 05:42] LABS: MANUAL DIFF NEEDED? NO
[2017-03-12 06:12] LABS: BASO% 0.8 % (0.0-0.8); EOS# 0.26 X1000 (0.0-0.7); EOS% 3.4 % (0.0-10.0); HEMOGLOBIN 7.5 g/dL (12.0-16.0); IMM GRAN# 0.06 X1000 (0.0-0.04); IMM GRAN% 0.8 % (0.0-0.5); LYMPH# 1.39 X1000 (1.2-3.4); LYMPH% 18.4 % (20.5-51.1); MCV 96.5 FL (81-99); MONO# 1.06 X1000 (0.11-0.59); MPV 11.4 FL (7.4-10.4); NEUT% 62.6 % (42.2-75.2); PLT 184 X1000 (130-400); RBC 2.59 XMIL (4.2-5.4)
[2017-03-12 06:23] LABS: ALBUMIN 3.7 g/dL (3.5-5.0); CALCIUM 9.4 mg/dL (8.8-10.2); POTASSIUM 3.5 mmol/L (3.5-5.1)
[2017-03-12 06:28] LABS: FERRITIN 245 ng/mL (13-150)
[2017-03-12 06:34] LABS: IRON SATURATION 14 %; TIBC 147 ug/dL; TOTAL IRON 21 ug/dL (49-151); UNBOUND IRON 126 ug/dL (112-346)
--- NOTE | 2017-03-12 07:03 | Diag Imaging Result Doc PS360 ---
EXAM: CHEST-PORTABLE HISTORY: CHF TECHNIQUE: AP portable at 0500 COMMENT: The alveolar pulmonary edema which was present on 03/11/2017 has diminished slightly. Otherwise has been no significant change. IMPRESSION: Improved pulmonary edema. Electronically signed by Dennys Sylvester 03/12/2017 7:00 AM
[2017-03-12] MEDS: TOPROL XL PO SCH (09:13)
[2017-03-12] MEDS: HEPARIN SUBQ SCH ×2 (09:13→20:04)
[2017-03-12] MEDS: CELEXA PO SCH (09:13)
[2017-03-12] MEDS: ABILIFY PO SCH (09:13)
[2017-03-12] MEDS: ZOCOR PO SCH (09:13)
[2017-03-12] MEDS: KLOR-CON PO SCH (09:13)
[2017-03-12] MEDS: CORDARONE PO SCH (09:13)
[2017-03-12] MEDS: ASPIRIN EC PO SCH (09:13)
[2017-03-12] MEDS: COLACE PO SCH ×2 (09:13→20:04)
[2017-03-12] MEDS: MIRALAX PO SCH (09:14)
--- NOTE | 2017-03-12 10:37 | PROGRESS NOTE ---
DATE: 03/12/2017 SUBJECTIVE: This patient is resting comfortably in bed. She was transferred to the CIC unit yesterday because this patient started having severe shortness of breath. She was placed on the BiPAP machine. This is likely secondary to fluid overload/pulmonary edema. Nephrology department and cardiology department are following this patient as well. For now, we will continue with IV Lasix. We will continue to monitor this patient closely. OBJECTIVE: Vital Signs: Temperature 97.7, pulse 80, respiratory rate 20, blood pressure 151/64, oxygen saturation 100% on BiPAP machine. HEENT: Head normocephalic. No trauma. PERRLA. Neck: Supple. No JVD. No masses. Central trachea. Chest: Decreased breath sounds at the bases with bilateral rales, mostly at the bases as well. Cardiovascular: RRR. Abdomen: Soft, nontender, nondistended. No hepatosplenomegaly. Extremities: There is 3+ lower extremity and upper extremity edema. Neurological Examination: The patient is alert. She is oriented x3. No focal deficits. Laboratory: WBC 7.5, hemoglobin 7.5, hematocrit 25, platelets 184,000. Sodium 146, potassium 3.5, chloride 99, bicarbonate 35, BUN 56, creatinine 1.7, glucose 84, calcium 9.4. Iron 21, TIBC 147, ferritin 245. ASSESSMENT AND PLAN: 1. Pulmonary edema. This is getting better. Continue with the BiPAP machine and Lasix for now. Cardiology and nephrology departments are following this patient closely. She feels a little bit better compared with yesterday. 2. Likely diastolic heart failure. Continue with diuresis. 3. Kidney injury, stable. Probably this is her baseline. We do not have previous records. 4. Chronic obstructive pulmonary disease, not in exacerbation. We will monitor. Continue with breathing treatments. 5. Hypertension. Continue with home medication. Diltiazem has been stopped and replaced with Toprol by cardiology. 6. History of atrial fibrillation. She underwent an ablation of the AV node and she is status post permanent pacemaker implantation with [employer] device on 02/21/2017. 7. Hypokalemia, resolved. 8. Dyslipidemia. Continue with statins. 9. Constipation. Continue with the stool softener. 10. Anxiety. Continue with Xanax. 11. Anemia. This patient's hemoglobin is 7.5 and compared with yesterday, it is the same. We will continue to monitor. CRITICAL CARE TIME: 35 minutes. cc: Charlie Babb MD
--- NOTE | 2017-03-12 16:51 | PROGRESS NOTE ---
DATE: 03/12/2017 SUBJECTIVE: She was moved to the CICU yesterday because of CO2 retention. She was treated with BiPAP. This morning she is awake and alert. The family states that she seems somewhat better today though she is still on BiPAP. OBJECTIVE: Vital Signs: Blood pressure 166/60, heart rate 78, respirations 27, afebrile. Intake 400 mL. Output 700 mL. General: Elderly woman on BiPAP in no acute distress. Skin: Warm and dry. Conjunctivae are pink. Neck: Neck veins are not distended. Heart: Regular. Lungs: Have equal breath sounds with few scattered crackles. Abdomen: Soft and nontender. Bowel sounds are present. Extremities: Have 2+ edema but clearly improved from my last exam on yesterday. LABORATORY DATA: Sodium 146, potassium 3.5, chloride 99, bicarbonate 35, BUN 56, creatinine 1.7. Hemoglobin 7.5. IMPRESSION AND PLAN: 1. Acute diastolic heart failure. Worsened status over the evening. Chest x-ray has improved some this morning. I had ordered her high-dose diuretics through today and I will continue that plan. 2. Chronic kidney disease stage 3B. Her kidney function is unchanged despite heavy diuretic use. 3. Metabolic alkalosis likely from diuretic use. cc: Brett Neff MD
[2017-03-12] MEDS: XANAX PO PRN (21:44)
[2017-03-13 05:15] LABS: HEMATOCRIT 25.8 % (37.0-47.0); HEMOGLOBIN 7.7 g/dL (12.0-16.0); MCH 29.7 PG (27-31); MCHC 29.8 g/dL (33-37); MCV 99.6 FL (81-99); MPV 11.1 FL (7.4-10.4); RBC 2.59 XMIL (4.2-5.4)
[2017-03-13 05:51] LABS: ALBUMIN 3.5 g/dL (3.5-5.0); CALCIUM 9.4 mg/dL (8.8-10.2); POTASSIUM 3.6 mmol/L (3.5-5.1)
[2017-03-13] MEDS: DUONEB (A & A) INH PRN ×4 (07:40→23:01)
[2017-03-13] MEDS: ZOCOR PO SCH (08:41)
[2017-03-13] MEDS: TOPROL XL PO SCH (08:41)
[2017-03-13] MEDS: MIRALAX PO SCH (08:41)
[2017-03-13] MEDS: HEPARIN SUBQ SCH ×2 (08:42→20:29)
[2017-03-13] MEDS: KLOR-CON PO SCH (08:42)
[2017-03-13] MEDS: ABILIFY PO SCH (08:42)
[2017-03-13] MEDS: ASPIRIN EC PO SCH (08:42)
[2017-03-13] MEDS: COLACE PO SCH ×2 (08:42→20:29)
[2017-03-13] MEDS: CELEXA PO SCH (08:42)
[2017-03-13] MEDS: CORDARONE PO SCH (08:42)
[2017-03-13] MEDS ORDERED: LASIX PO SCH (09:00)
[2017-03-13] MEDS: LASIX IV SCH ×2 (10:42→21:42)
--- NOTE | 2017-03-13 11:31 | PROGRESS NOTE ---
DATE: 03/13/2017 SUBJECTIVE: Ms. Montelongo is resting quietly in bed. Head of bed is elevated. She is currently off her BiPAP her daughter is assisting her to eat and replacing with a 50% Ventimask in between bites. She denies pain and states that she continues with increased work of breathing, though this is improved. OBJECTIVE: Her most recent vital signs are temperature 98 degrees, blood pressure 140/68, heart rate 81 respirations 25. She is on 40% BiPAP. Otherwise saturations last recorded are 99%. She has had 120 in. She has had 2600 out. LABORATORY DATA: Sodium 145, potassium 3.6, chloride 96, CO2 38, BUN 55, creatinine 1.8, glucose 83, anion gap 11, calcium 9.4, phosphorus 3.6, albumin 3.5, white count 6.37, hemoglobin 7.7, hematocrit 25.8, with a platelet count of 228,000. PHYSICAL EXAMINATION: General: This is an 86-year-old, white female. She is currently resting in bed. She appears chronically ill. She is in no acute distress. Skin: Warm and dry. HEENT: Normocephalic, atraumatic. Conjunctiva is pale. She has LESLEE. Mucous membranes moist. Neck: Supple. Trachea midline. No JVD. Cardiovascular: She has regular rate and rhythm. She is without murmur or gallop. Lungs: She has scattered coarse breath sounds bilateral. Faint crackles posterior bases. Expiratory wheeze is noted. She remains on 50% Ventimask in between eating her breakfast this a.m. Abdomen: Soft, nontender. Positive bowel sounds. Extremities: She continues with 2+ edema all the way up into the midthigh abdominal area. Integumentary: No rashes or lesions noted. Neurological: She is alert and oriented to person, place, and somewhat to most recent events. ASSESSMENT AND PLAN: 1. Acute diastolic heart failure. Patient had been receiving Lasix 80 mg b.i.d. This was decreased to 40 mg until reassessment secondary to her fluid volume overload. We will increase her Lasix again to 80 mg b.i.d. for 4 doses and then re-evaluate. She has had excellent urine output. She states that she is feeling a little bit better. Swelling decreased. 2. Chronic kidney disease stage 3B. Her baseline creatinine remains stable with a large diuretic usage. 3. Metabolic alkalosis more likely related to #1. We will continue to monitor. 4. Anemia. Hemoglobin of 7.7. We will defer to the primary care team in regards with possible replacement. I would to thank you for allowing us to follow with this patient. Seen, data reviewed, discussed with Ken Coffey on 03/13/17. I agree with the above assessment and plan of care. rg Dictated by WILL Soriano for Brett Neff MD cc: WILL Soriano MD [facility]
[2017-03-13] MEDS ORDERED: LASIX IV SCH (11:45)
[2017-03-13] MEDS: VENOFER 200 MG in NS 150 ML IV SCH (13:10)
--- NOTE | 2017-03-13 14:26 | PROGRESS NOTE ---
DATE: 03/13/2017 SUBJECTIVE: This patient states that she is feeling better. When I evaluated this patient she was with physical therapy. She is still having bilateral generalized rales and crackles. She is alert and oriented x3. Family members at the bedside. All their questions were answered. OBJECTIVE: Vital Signs: Temperature 98.4 degrees, pulse 80, respiratory rate 30, blood pressure 138/69, oxygen saturation 100% on Venturi mask. HEENT: Head normocephalic. No trauma. PERRLA. Neck: Supple. No JVD. No masses. Central trachea. Chest: Decreased breath sounds at the bases with bilateral rales and crackles. Cardiovascular: RRR. Abdomen: Soft, nontender, nondistended. No hepatosplenomegaly. Extremities: 2+ lower extremity edema. No clubbing. No cyanosis. Neurological: The patient is alert and oriented x3. No focal deficits. LABORATORY: WBC 6.7, hemoglobin 7.7, hematocrit 25.8, platelets 228,000. Sodium 145, potassium 3.6, chloride 96, bicarbonate 38, BUN 55, creatinine 1.8, glucose 83, calcium 9.4. ASSESSMENT AND PLAN: 1. Pulmonary edema. This is getting better. Continue with BiPAP machine on and off and also Venturi mask. Continue with Lasix IV twice a day. 2. Likely diastolic heart failure. Continue with diuresis. 3. Kidney injury stable. Probably this is her baseline. We do not have previous records. 4. Chronic obstructive pulmonary disease not in exacerbation. Continue to monitor. Continue with breathing treatment. 5. Hypertension. Continue with home medication. Diltiazem has been stopped and replaced with Toprol by Cardiology a few days ago. 6. History of atrial fibrillation. She underwent an ablation of the atrioventricular node and she is status post permanent pacemaker implantation with [employer] device on 02/21/2017. 7. Hypokalemia. Resolved. 8. Dyslipidemia. Continue with statins. 9. Constipation. Continue with stool softener. 10. Anxiety. Continue with Xanax. 11. Anemia. Patient's hemoglobin today 7.7, yesterday was 7.5. The last time that I tried to transfuse this patient she had respiratory distress. For now I will monitor. CRITICAL CARE TIME: 35 minutes. cc: Charlie Babb MD
[2017-03-13] MEDS: XANAX PO PRN (21:27)
[2017-03-14 05:31] LABS: BASO% 1.5 % (0.0-0.8); EOS# 0.63 X1000 (0.0-0.7); EOS% 10.5 % (0.0-10.0); IMM GRAN# 0.14 X1000 (0.0-0.04); IMM GRAN% 2.3 % (0.0-0.5); LYMPH# 1.16 X1000 (1.2-3.4); LYMPH% 19.3 % (20.5-51.1); MANUAL DIFF NEEDED? NO; MCH 29.1 PG (27-31); MCV 97.1 FL (81-99); MONO# 1.19 X1000 (0.11-0.59); MONO% 19.8 % (1.7-9.3); MPV 10.8 FL (7.4-10.4); NEUT% 46.6 % (42.2-75.2); PLT 304 X1000 (130-400); RBC 3.09 XMIL (4.2-5.4)
[2017-03-14 06:19] LABS: ALBUMIN 3.4 g/dL (3.5-5.0); CALCIUM 9.7 mg/dL (8.8-10.2); POTASSIUM 4.3 mmol/L (3.5-5.1)
[2017-03-14] MEDS: DUONEB (A & A) INH PRN ×5 (07:19→23:00)
[2017-03-14] MEDS: VENOFER 200 MG in NS 150 ML IV SCH (08:13)
[2017-03-14] MEDS: HEPARIN SUBQ SCH ×2 (08:13→20:16)
[2017-03-14] MEDS: TOPROL XL PO SCH (08:13)
[2017-03-14] MEDS: CELEXA PO SCH (08:13)
[2017-03-14] MEDS: ASPIRIN EC PO SCH (08:13)
[2017-03-14] MEDS: COLACE PO SCH ×2 (08:13→20:16)
[2017-03-14] MEDS: LASIX IV SCH (08:13)
[2017-03-14] MEDS: MIRALAX PO SCH (08:13)
[2017-03-14] MEDS: KLOR-CON PO SCH (08:13)
[2017-03-14] MEDS: ABILIFY PO SCH (08:13)
[2017-03-14] MEDS: CORDARONE PO SCH (08:14)
[2017-03-14] MEDS: ZOCOR PO SCH (08:14)
--- NOTE | 2017-03-14 08:53 | PROGRESS NOTE ---
DATE: 03/14/2017 HISTORY: This is an 86-year-old with a past medical history of COPD and hypertension, congestive heart failure, hyperglycemia, pacemaker placement secondary to arrhythmia. Came to the emergency department with a chief complaint of bilateral lower extremity edema and pain. As per patient, patient was admitted on 02/01/2017 to [facility] secondary to shortness of breath. She was discharged on the 03 of February but again she started having swelling at the beginning of this month. Went to see her primary drapery hemmer automatic, Dr. Nguyen. Medications were adjusted. She came to the emergency department with swelling much worse. She was having a good deal of discomfort and pain. She could not walk. The day of admission, she was not complaining of shortness of breath or chest pain so admitted with congestive heart failure, increased edema. She also has chronic kidney disease and appears to be acute kidney injury, underlying COPD, history of arrhythmia with pacemaker placement. Echocardiogram done on 03/09/2017. Aortic valve sclerosis, minimal stenosis, mild mitral annular calcification, very mild mitral regurgitation, mild tricuspid regurgitation, mild concentric LVH, estimated ejection fraction of 65%, and mild left atrial enlargement. She had an extremity venous study on 03/09/2017. No obvious superficial or deep venous thrombosis noted in bilateral lower extremities. There was mild pulsatility noted in bilateral femoral veins which may represent central cardiac issues. Dr. Nguyen was consulted on 03/09/2017. She had significant hypokalemia because of the metolazone which was given as an outpatient 2 doses so we repleted the potassium. She has chronic pedal edema and felt this was multifactorial given also the underlying anemia. Noninvasive tests were negative. An echocardiogram assessed the left ventricular function. Systolic function good. A chest x-ray on 03/10/2017, pulmonary edema with possible underlying basilar infiltrates. Renal ultrasound on 03/10/2017, left renal cyst, otherwise unremarkable. Dr. Neff consulted on 03/10/2017. [place] she has chronic kidney disease stage IIIB but suspect this is a chronic condition. Chest x-ray repeated on 03/12/2017, improved pulmonary edema. Clinically, she feels much better and breathing better. Still, I think using BiPAP at night. She is requiring less O2. PHYSICAL EXAMINATION: Vital Signs: Today, temperature 98 degrees, pulse 80, respirations 28, blood pressure 146/68. CVP appears to be about 8 cm from angle of Pablo. Lungs: Clear anterolateral. Cardiovascular Examination: Regular rhythm and rate without murmur or S3. Abdomen: Soft. Skin: Warm and dry. Extremities: No pedal edema at this time. Is and Os: Urine output was over 2200. LAB: White count this morning was 6020, hematocrit was 30, platelet count 304,000. Sodium 146, potassium 4.3, chloride 98, BUN 54, creatinine 1.5 so creatinine has come down. Albumin 3.4. ASSESSMENT AND PLAN: 1. Pulmonary edema. Continue BiPAP as needed. I suspect she will need to go home with oxygen. We will see how we progress. 2. Likely diastolic dysfunction with chronic venous insufficiency and has responded to diuresis. 3. Chronic kidney disease stage IIIB suspected. Creatinine is improving. 4. Chronic obstructive pulmonary disease. Continue her present O2, breathing treatment. She presented with chronic obstructive pulmonary disease, I think exacerbation due to pulmonary edema. This is improving. 5. Hypertension. Blood pressure well controlled. 6. History of atrial fibrillation. Underwent ablation of AV node and status post pacemaker implantation, [employer] device, 02/21/2017. 7. Hypokalemia which has been repleted. 8. Dyslipidemia. Aware. On statin. 9. Constipation. Continue stool softener. 10. Anxiety. She is on a little Xanax. Seems to be doing better. 11. Anemia. Hemoglobin was around 7.7. We will we will not transfuse. I want to make sure she is on iron. 12. Review of her orders. She did get some iron sucrose 200 mg and she is getting that I think daily, Zocor 10 mg a day, potassium chloride 40 mEq daily, polyethylene glycol or MiraLAX 17 g p.o. daily. IV fluids running at 42 mL per hour of normal saline. Metoprolol 50 mg a day, Lasix 40 mg IV q.24 hours, Colace 100 mg b.i.d., Celexa 40 mg daily, aspirin 81 mg a day, Abilify 5 mg a day, amiodarone 200 mg daily, Xanax 0.25 mg b.i.d. p.r.n. We are going to begin some physical therapy. Hopefully, we can get the Hua catheter out tomorrow. They would like to go home with home health. We will see if she is able. She is still not able to ambulate without assistance. I think we need to pursue going to inpatient physical therapy again. cc: Uriah Arrieta MD
--- NOTE | 2017-03-14 13:46 | PROGRESS NOTE ---
DATE: 03/14/2017 CHIEF COMPLAINT: Shortness of breath and edema. SUBJECTIVE: Ms. Montelongo is breathing more comfortably. She denies having any chest pain. Her quality systems specialist indicates activity of a dual chamber biventricular pacemaker. OBJECTIVE: Vital signs: Blood pressure today is 146/68, temperature 98 degrees , pulse 80, and respirations 18. General: The patient is awake, elderly, with a Ventimask. HEENT: No significant jugular venous distention. Respiratory: Chest shows diminished breath sounds diffusely. Cardiovascular: Heart sounds are regular and rhythmic. No significant gallop or murmur is noted. Abdomen: The abdomen is nontender. There are no masses and no hepatomegaly. Extremities: The extremities show 1+ edema bilaterally. Pulses are slightly diminished. Neurological: She moves all extremities and follows commands. She is very hard of hearing. LABORATORY DATA: Blood work shows a hemoglobin of 9 and hematocrit of 30%. Her platelet count is 304,000. Sodium is 146, potassium 4.3, BUN 54, and creatinine 1.5. Albumin is 3.4. Her most recent chest x-ray which was 03/12/2017 shows improved pulmonary edema. IMPRESSION: 1. The patient presented with significant edema secondary to congestive heart failure with preserved ejection fraction (diastolic heart failure). The reason for this is not very clear. Echocardiogram done on 03/09/2017 shows a normal left ventricular systolic function with no significant valvular abnormality. 2. Patient who has a history of paroxysmal atrial fibrillation status post ablation of the atrioventricular node with implantation of a biventricular device. 3. Chronic renal insufficiency. 4. History of hypertension. RECOMMENDATIONS: At this point in time we will try to adjust her medications. We may need to give her some free water since her sodium is elevated. She is getting some iron supplements. She has iron deficiency anemia. Further intervention will depend on her clinical course. The patient also had presented with hypercapnic respiratory failure which may indicate the presence of underlying significant chronic obstructive pulmonary disease. Further advise will depend on her progress. cc: Sarabjit Thompson MD [facility]
[2017-03-14] MEDS: XANAX PO PRN (22:02)
[2017-03-15 05:23] LABS: ALBUMIN 3.3 g/dL (3.5-5.0); CALCIUM 9.6 mg/dL (8.8-10.2); HEMATOCRIT 29.5 % (37.0-47.0); HEMOGLOBIN 8.8 g/dL (12.0-16.0); MCH 29.8 PG (27-31); MCHC 29.8 g/dL (33-37); POTASSIUM 4.6 mmol/L (3.5-5.1); RBC 2.95 XMIL (4.2-5.4)
--- NOTE | 2017-03-15 07:14 | PROGRESS NOTE ---
DATE: 03/15/2017 SUBJECTIVE: Ms. Montelongo had a good night. She says she slept well. Her breathing is better. She has not really got out of bed and walked much. OBJECTIVE: Vital Signs: She remains afebrile, temp 98.3 degrees, pulse 80, respirations 20, blood pressure 154/60. HEENT: Pupils are equal and round. Lungs: Clear in all lung taylor. Cardiovascular: Regular rhythm and rate without murmur or S3. Abdomen: Soft, nontender. Positive bowel sounds in all quadrants. No pedal edema. Her weight is 163. On the 3rd, it was 162. Back on the , it was 171. Urine output was 1400 mL. LAB: Reviewed from this morning, white count 9600, hematocrit is 29, stable. Platelet count is 340,000. Chemistry: Sodium 144, potassium 4.6, chloride 97, BUN 52, creatinine 1.5, albumin was 3.3. ASSESSMENT AND PLAN: 1. The patient presented with significant edema secondary to congestive heart failure with preserved ejection fraction. The reason for this is not real clear. Echocardiogram was done on 03/09/2017 and showed normal left ventricular systolic function with no significant valvular abnormality. The patient is improved. Her breathing status is good. She has diuresed and getting close to be able to go home. 2. History of paroxysmal atrial fibrillation status post ablation of the arteriovenous node with implantation of biventricular device, functioning well. 3. Chronic renal insufficiency, stable. 4. History of hypertension. Blood pressure is well controlled. 5. Weakness and deconditioning. We have physical therapy ordered and will start getting her out of bed. I think their desire is to try to go home. So, we will make sure we get her up and start walking her. She did get some iron yesterday, iron sucrose. On the , she got some from Dr. Neff. She is on Zocor 10 mg a day. 6. Potassium chloride 40 mEq a day. MiraLAX 17 g a day. Metoprolol succinate 50 mg p.o. daily. She is on heparin 5000 units subcutaneous q.12 hours, Lasix 40 mg IV q.24 hours, Colace 100 mg b.i.d., Celexa 40 mg daily, aspirin 81 mg a day, Abilify 5 mg p.o. daily, Cordarone 200 mg a day and Xanax 0.25 mg b.i.d. Hopefully, we can go home for the weekend. We need to get her walking and get her a little stronger. Once again, review of lab unremarkable. Serum creatinine down to 1.5. cc: Uriah Arrieta MD
[2017-03-15] MEDS: DUONEB (A & A) INH PRN ×3 (07:56→22:25)
[2017-03-15] MEDS: CELEXA PO SCH (08:52)
[2017-03-15] MEDS: MIRALAX PO SCH (08:52)
[2017-03-15] MEDS: VENOFER 200 MG in NS 150 ML IV SCH (08:52)
[2017-03-15] MEDS: ASPIRIN EC PO SCH (08:52)
[2017-03-15] MEDS: KLOR-CON PO SCH (08:52)
[2017-03-15] MEDS: ABILIFY PO SCH (08:52)
[2017-03-15] MEDS: LASIX IV SCH ×2 (08:53→20:21)
[2017-03-15] MEDS: TOPROL XL PO SCH (08:53)
[2017-03-15] MEDS: COLACE PO SCH ×2 (08:53→20:21)
[2017-03-15] MEDS: CORDARONE PO SCH (08:53)
[2017-03-15] MEDS: ZOCOR PO SCH (08:53)
[2017-03-15] MEDS: HEPARIN SUBQ SCH ×2 (08:53→20:21)
--- NOTE | 2017-03-15 10:23 | PROGRESS NOTE ---
DATE: 03/15/2017 TIME SEEN: 0745. SUBJECTIVE: Ms. Montelongo is resting quietly in bed. She is doing well. She has no complaints. She denies chest pain or increased work of breathing. OBJECTIVE: Her most recent vital signs: Temperature 98.3 degrees, blood pressure 154/60, heart rate 80, respirations 26. She remains on BiPAP of 40%. Last recorded saturation 98%. She has had 500 In. She has had 1450 Out per Hua catheter. LABORATORY STUDIES: Sodium 144, potassium 4.6, chloride 97, CO2 of 40, BUN 52, creatinine 1.5, glucose 117. Anion gap 7. Calcium 9.6, phosphorus 3.3, albumin 3.3. White count 9.6, hemoglobin 8.8, hematocrit 29.5, with a platelet count of 340,000. Her erythropoietin level is 50.8. PHYSICAL EXAMINATION: General: This is an 86-year-old, elderly white female. She is currently resting in bed. She is in no acute distress. Her skin is warm and dry. HEENT: Normocephalic, atraumatic. Conjunctivae pale. She has LESLEE. Mucous membranes are dry. Neck supple. Trachea midline. Trace JVD. Cardiovascular: Regular rate and rhythm. She has no murmur or gallop. She has a questionable S4 present. Abdomen soft, nontender. Positive bowel sounds. Extremities have no edema. No clubbing or cyanosis. She continues with some chronic venous stasis. Otherwise, this has improved over the last 3-4 days. Genitourinary: Hua catheter remains in place. Neurologic: She is alert to person and to place. ASSESSMENT AND PLAN: 1. Congestive heart failure with fluid volume overload. Patient has significant edema upon admission. This has improved during her hospitalization. She remains on BiPAP at night. Otherwise, she has been placed on O2 during the day. Daughter states that this improved over the last several days and they are hoping to take her home by the end of the week. 2. Electrolytes and acid-base balance. These are stable with mild metabolic alkalosis. This is related to #1. This continues to improve. 3. Chronic kidney disease. Patient's baseline creatinine remains stable at 1.5. During her diuretic treatments, she remains on Lasix 40 mg daily. No indications for changes. We will stop her normal saline at KVO. 4. Anemia. This remains low. Her erythropoietin level is stable, and she has been given IV iron. Again, this is to be followed by the primary care team. Patient's baseline creatinine remains stable. CHF has improved. Fluid volume overload has improved. We will be available as needed. I would to thank you for allowing us to follow with this patient. Seen, data reviewed, discussed with Ken Coffey on 03/15/17. I agree with the above assessment and plan of care. rg Dictated by WILL Soriano for Brett Neff MD cc: WILL Soriano MD [facility]
--- NOTE | 2017-03-15 14:38 | Diag Imaging Result Doc PS360 ---
EXAM: CHEST-PORTABLE INDICATION: dyspnea TECHNIQUE: One view COMPARISON: 03/12/2017 FINDINGS: Central and basilar infiltrates have worsened during the interval, most compatible with pulmonary edema. In the right clinical scenario, a component of infection would be possible. There is no evidence of pneumothorax. Cardiac silhouette is stable. IMPRESSION: Worsening bilateral infiltrates most compatible with edema. Electronically signed by William Scales 03/15/2017 2:36 PM
[2017-03-15] MEDS: XANAX PO PRN (20:21)
[2017-03-16 06:19] LABS: CALCIUM 9.7 mg/dL (8.8-10.2); MAGNESIUM 2.2 mg/dL (1.5-2.7); POTASSIUM 4.4 mmol/L (3.5-5.1)
--- NOTE | 2017-03-16 06:55 | PROGRESS NOTE ---
DATE: 03/16/2017 SUBJECTIVE: Ms. Montelongo had to go back on BiPAP last evening because of shortness of breath and smothering when she lies down. She is resting comfortably on BiPAP currently. She does not complain of shortness of breath currently. OBJECTIVE: Blood pressure 135/54, heart rate 79, respiration 18, afebrile. Weight is 74 kg. Intake 1.4 L. Output 2.2 L. PHYSICAL EXAMINATION: No acute distress. Skin is warm and dry. Conjunctivae are pink. Neck veins are not visible. Trachea is midline. Heart is regular with systolic murmur present. Lungs have equal breath sounds. No audible crackles. Abdomen is soft, nontender. Bowel sounds present. Extremities have 1+ edema. No clubbing or cyanosis. LABORATORY DATA: Sodium 147, potassium 4.4, chloride 99, bicarbonate 41. BUN 45, creatinine 1.4. Hemoglobin 8.8. IMPRESSION: Acute kidney injury. This has improved. We do not have a historical baseline creatinine. Her primary problem is prerenal in origin related to her decompensated heart failure. Similarly, her progressively worsening metabolic alkalosis is related to diuretic therapy as well. Perhaps a pulmonary consult will be helpful if given that she has not responded to diuretic therapy and negative fluid balance. cc: Brett Neff MD
[2017-03-16] MEDS: DUONEB (A & A) INH PRN ×5 (07:37→22:45)
--- NOTE | 2017-03-16 08:28 | PROGRESS NOTE ---
DATE: 03/16/2017 SUBJECTIVE: Ms. Montelongo is resting comfortably. She is on BiPAP at the present time. OBJECTIVE: Vital Signs: Her temp remained afebrile. Temp is 97.1 degrees, pulse 79, respirations 25, blood pressure 135/54. HEENT: CVP appears to be less than 6 cm. Lungs: Clear anterolateral. Cardiovascular exam: Regular rhythm and rate without murmur or S3. Abdomen: Soft. Skin: Warm and dry. : Urine output 1700 mL. LABS: White count from yesterday 9600, hematocrit stable at 29. Chemistry: Sodium 147, potassium 4.4, chloride 99, BUN 45, creatinine 1.4 which has come down nicely from 1.8 on 03/13. X-RAYS: Chest x-ray from yesterday: Worsening bilateral infiltrates mostly compatible with edema. ASSESSMENT AND PLAN: 1. Acute kidney injury which continues to improve. Continued to try and diurese; radiographically still a lot of pulmonary edema still requiring BiPAP. She has progressively worsening metabolic alkalosis related to diuretic therapy. We will get pulmonary involved. 2. History of paroxysmal atrial fibrillation status post arteriovenous node ablation and implantation of a pacemaker. 3. Acute on chronic renal insufficiency. 4. History of hypertension. 5. Weakness and deconditioning. Continue physical therapy. Will supplement electrolytes. Electrolytes look good today. So, consult pulmonary and continue her diuresis. She is getting Lasix 40 mg IV twice a day and she is getting increasing volume contraction, alkalosis, but we still need to try and diurese some more off. cc: Uriah Arrieta MD
[2017-03-16 08:33] LABS: ALLEN TEST YES; BE 21.1 mmoll (-3.0-3.0); BLOOD TYPE ARTERIAL; DRAW SITE R RADIAL; METHB 0.4 % (0.0-1.5); O2(CT) 11.8 mL/dL (15.0-23.0); PO2(98.6) 67 mmHg (60-100); SAMPLE BLOOD; SAO2 98.9 % (95.0-100.0); THB 8.7 g/dL (11.5-17.4)
[2017-03-16 08:35] LABS: MODALITY BI PAP; PCO2(98.6) 60 mmHg (35-45)
[2017-03-16] MEDS: ABILIFY PO SCH (08:36)
[2017-03-16] MEDS: CELEXA PO SCH (08:36)
--- NOTE | 2017-03-16 08:36 | Diag Imaging Result Doc PS360 ---
CHEST-PORTABLE - 03/16/2017 INDICATION: pulmonary edema TECHNIQUE: COMPARISON: 03/15/2017 FINDINGS: Stable biventricular pacemaker. Stable cardiomegaly and pulmonary vascular congestion. There is improvement in the bilateral mid and lower lung zone airspace opacities compatible with any mixture of atelectasis, effusion, or infiltrate. There is now good visualization of both the right heart border and right hemidiaphragm. IMPRESSION: Improvement from prior. Electronically signed by David Helms 03/16/2017 8:34 AM
[2017-03-16] MEDS: COLACE PO SCH ×2 (08:37→21:13)
[2017-03-16] MEDS: MIRALAX PO SCH (08:37)
[2017-03-16] MEDS: TOPROL XL PO SCH (08:37)
[2017-03-16] MEDS: ZOCOR PO SCH (08:37)
[2017-03-16] MEDS: ASPIRIN EC PO SCH (08:37)
[2017-03-16] MEDS: LASIX IV SCH (08:37)
[2017-03-16] MEDS: VENOFER 200 MG in NS 150 ML IV SCH (08:37)
[2017-03-16] MEDS: CORDARONE PO SCH (08:37)
[2017-03-16] MEDS: KLOR-CON PO SCH (08:37)
[2017-03-16] MEDS: HEPARIN SUBQ SCH ×2 (08:37→21:13)
--- NOTE | 2017-03-16 17:08 | PROGRESS NOTE ---
DATE: 03/16/2017 CHIEF COMPLAINT: Swelling, shortness of breath. SUBJECTIVE: Ms. Montelongo seems to be doing better. She has no major complaints. She is sitting comfortably upright. She is very hard of hearing. Daughter is at the bedside and, in her opinion, her mother is looking a whole lot better. In fact, the swelling of her legs has decreased. OBJECTIVE: Vital signs: Blood pressure 140/58, temperature 98.6, pulse 79, respirations 20. General: She is awake, alert, oriented, in no distress. HEENT: Unremarkable. Chest: Bilateral rhonchi, decreased breath sounds. Cardiac: Heart sounds are regular and rhythmic. No gallop or murmur is noted. Abdomen: Nontender, soft. Extremities: Show trace to 1+ edema bilaterally. Pulses diminished. Neurologic: Very hard of hearing. Follows commands. Moves four extremities. LABORATORY DATA: ABG with pH 7.5, pCO2 is 60, pO2 is 67. Sodium today is 147, potassium 4.4, BUN 45, creatinine 1.4. IMPRESSION: 1. Patient presenting with increasing edema, congestive heart failure, mostly diastolic dysfunction. Her ejection fraction was normal. 2. Chronic kidney disease. 3. COPD. Her chest x-rays have show pulmonary edema. That has improved. 4. Status post ablation of atrial fibrillation and biventricular pacemaker implantation within the past 6 weeks. RECOMMENDATIONS: At this point in time, I would suggest to discontinue beta-rafal and also calcium blockers. The patient in theory should not have tachycardia mediated by the AV node or the atrial fibrillation because the AV node has been destroyed. If we need to optimize blood pressure, we need to use vasodilators primarily. She would probably benefit from a pulmonary consultation since her examination of the lungs is abnormal. We might consider doing a CT scan of the chest without contrast. Further advice will be forthcoming. cc: Sarabjit Thompson MD
[2017-03-16] MEDS ORDERED: STERILE WATER INJ. ONE (18:18)
[2017-03-16] MEDS: DIAMOX IV SCH (18:39)
--- NOTE | 2017-03-16 20:22 | CONSULTATION ---
DATE OF CONSULTATION: 03/16/2017 REQUESTING PHYSICIAN: Uriah Arrieta MD. REASON FOR CONSULTATION: Evaluate and treat. HISTORY OF PRESENT ILLNESS: Ms. Montelongo is an 86-year-old, white female, never smoker, with a diagnosis of COPD, who has required a periodic diuretic for lower extremity edema for the last several years. Earlier this year, she had increased difficulty with shortness of breath and falling, and has had 2 admissions to [facility]. She subsequently had a biventricular pacemaker placed. She has had increased difficulty with lower extremity edema and was admitted to [facility] on 03/08/2017 with lower extremity edema and increasing shortness of breath. Chest x-ray on admission revealed mild cardiomegaly with central vascular prominence and small effusions. Despite diuresis, a follow-up chest x-ray did reveal worsening of the edema. She underwent an arterial blood gas on 03/11/2017 which revealed evidence of hypoxemic and hypercapnic respiratory failure with a pH of 7.16, pCO2 of 125, and PO2 of 136. She is on b.i.d. Lasix but over the last 8 days she has lost only 5 pounds. Family reports that she does okay while sitting up in the chair but develops progressive shortness of breath when she reclines. They report her liquid intake is not excessive. PAST MEDICAL HISTORY: 1. COPD documented in the chart without recent pulmonary function studies available. No prior tobacco history. 2. Status post biventricular pacemaker as per above. 3. Diastolic heart failure. 4. Hypertension. 5. Status post hemorrhoidectomy. 6. Status post hysterectomy. 7. Status post cataract surgery. SOCIAL HISTORY: No alcohol use. No tobacco use. She has attentive daughters. REVIEW OF SYSTEMS: Limited. The patient is on BiPAP. PHYSICAL EXAMINATION: General: Reveals an elderly white female who appears her stated age, who appears comfortable on mechanical ventilation. Vital Signs: Heart rate 95, respiration rate 30, blood pressure 115/63, oxygen saturation 100%. HEENT: Pupils are equal and reactive. Oropharynx evaluation is limited with BiPAP in place. Neck: Supple. Chest: Reveals bilateral crackles. Cardiac Examination: Regular rate with normal S1, normal S2. Abdomen: Mildly distended and soft. Extremities: Reveal trace edema. LABORATORIES: Chest x-ray today reveals generous cardiac silhouette, of both lung bases suspicious for pulmonary edema/pleural effusions. Electrolytes: Sodium 147, potassium 4.4, chloride 99, bicarbonate 41, BUN 45, creatinine 1.4. Arterial blood gas: pH 7.50, pCO2 of 60, PO2 of 67. IMPRESSION: An 86-year-old status post recent biventricular pacemaker placement, diastolic heart failure, pulmonary edema with hypoxemic and hypercapnic respiratory failure. The patient has a diagnosis of COPD but has never been a smoker. She has mild obesity. I suspect the majority of her difficulty is from diastolic heart failure and fluid retention on the background of chronic renal insufficiency. Currently she is alkalotic from diuresis. She might benefit from nocturnal BiPAP which may improve her ability to diurese. If she does not improve significantly, we would recommend initiating end of life discussions with her family. Her 6 months prognosis is guarded to poor given 3 recent hospitalizations. RECOMMENDATIONS: 1. At bedtime and p.r.n. BiPAP. 2. Attempt diuretic dose later in the evening. 3. Three doses of acetazolamide for metabolic alkalosis. 4. Consider initiation of end of life discussions as per above. 5. Recommend outpatient sleep study and possible chronic management with nocturnal BiPAP. cc: MD Javier Rashid MD
[2017-03-16] MEDS: XANAX PO PRN (21:26)
[2017-03-16] MEDS ORDERED: LASIX IV ONE (22:00)
[2017-03-17] MEDS: DIAMOX IV SCH ×2 (02:02→09:04)
[2017-03-17] MEDS: DUONEB (A & A) INH PRN ×5 (03:35→22:57)
[2017-03-17 05:54] LABS: CALCIUM 9.6 mg/dL (8.8-10.2); MAGNESIUM 2.2 mg/dL (1.5-2.7); POTASSIUM 4.7 mmol/L (3.5-5.1)
--- NOTE | 2017-03-17 07:33 | Diag Imaging Result Doc PS360 ---
EXAM: CHEST-PORTABLE HISTORY: abnormal exam TECHNIQUE: Erect AP portable chest at 0545 COMMENT: There is pulmonary edema in the lung bases. This has not changed appreciably since the previous study of 03/16/2017. Otherwise has been no significant change. IMPRESSION: Pulmonary edema. Electronically signed by Dennys Sylvester 03/17/2017 7:31 AM
--- NOTE | 2017-03-17 08:42 | PROGRESS NOTE ---
DATE: 03/17/2017 SUBJECTIVE: She had a good night, was when I entered the room. States she felt pretty good. She did use the BiPAP through the night. OBJECTIVE: Vital Signs: Temperature 96.9 degrees, pulse 80, respirations 20, blood pressure 128/80. CVP is less than 6 cm. Lungs: Clear anterolateral Cardiovascular: Regular rhythm and rate without murmur or S3. Abdomen: Soft. Skin: Warm and dry. : Urine output 1700 mL. LABORATORY AND X-RAY DATA: Sodium 147, potassium 4.7, chloride 101, bicarb 40, BUN 49, creatinine 1.6. Yesterday, it was 1.4. Chest x-ray from this morning, pulmonary edema. Really no change in pulmonary edema in the lung bases not changed appreciably from 03/16/2017, yesterday. ASSESSMENT AND PLAN: 1. Biventricular pacemaker placement. 2. Diastolic failure. 3. Pulmonary edema. 4. Pulmonary venous hypertension. 5. Hypoxemic, hypercapnic respiratory failure. 6. There is a diagnosis of chronic obstructive pulmonary disease. Would like to get some pulmonary function tests at some point. 7. Mild obesity. 8. Appreciate Dr. Valentin's help. Suspect most of her difficulties in the diastolic heart failure and fluid retention are a background of chronic renal insufficiency. She is alkalotic from her diuresis and have diuresed very little. No real radiographic change. So, we are going to try continuing nocturnal BiPAP and see if that it will improve her ability to diurese and try to diurese at night. I have given her 3 doses of acetazolamide to help with the metabolic alkalosis. 9. Chronic kidney insufficiency or chronic kidney disease. Creatinine has been fairly stable. Creatinine 1.6. Bicarb was 40, chloride 101. Magnesium and potassium look good. 10. We will continue to try and work on her strength and deconditioning. Continue physical therapy. 11. Encourage p.o. intake, which I think is improved as well. Plan to keep her here 3 or 4 more days and also we need to see if she will need BiPAP at home. Dr. Valentin gave her Lasix 160 mg last night at about 10:00. Urine output was pretty good and probably we will continue that for a couple of nights. cc: Uriah Arrieta MD
[2017-03-17] MEDS: MIRALAX PO SCH (09:02)
[2017-03-17] MEDS: VENOFER 200 MG in NS 150 ML IV SCH (09:05)
[2017-03-17] MEDS: HEPARIN SUBQ SCH ×2 (09:05→20:59)
[2017-03-17] MEDS: KLOR-CON PO SCH (09:06)
[2017-03-17] MEDS: CELEXA PO SCH (09:06)
[2017-03-17] MEDS: LASIX IV SCH ×2 (09:06→21:00)
[2017-03-17] MEDS: ZOCOR PO SCH (09:06)
[2017-03-17] MEDS: ASPIRIN EC PO SCH (09:07)
[2017-03-17] MEDS: CORDARONE PO SCH (09:07)
[2017-03-17] MEDS: ABILIFY PO SCH (09:07)
[2017-03-17] MEDS: COLACE PO SCH ×2 (09:07→21:00)
[2017-03-18] MEDS: XANAX PO PRN ×2 (01:46→21:59)
[2017-03-18] MEDS: DUONEB (A & A) INH PRN ×6 (02:56→23:15)
[2017-03-18 05:08] LABS: ALLEN TEST YES; BE 16.1 mmoll (-3.0-3.0); BLOOD TYPE ARTERIAL; DRAW SITE R RADIAL; METHB 1.4 % (0.0-1.5); O2(CT) 11.6 mL/dL (15.0-23.0); PO2(98.6) 82 mmHg (60-100); SAMPLE BLOOD; THB 8.6 g/dL (11.5-17.4); pH(98.6) 7.43 (7.35-7.45)
[2017-03-18 05:12] LABS: MODALITY BI PAP; PCO2(98.6) 64 mmHg (35-45)
[2017-03-18 06:04] LABS: CALCIUM 9.4 mg/dL (8.8-10.2); MAGNESIUM 2.2 mg/dL (1.5-2.7); POTASSIUM 4.5 mmol/L (3.5-5.1)
--- NOTE | 2017-03-18 06:44 | Diag Imaging Result Doc PS360 ---
EXAM: CHEST-1 VIEW HISTORY: SOB TECHNIQUE: Portable semiupright AP COMPARISON: 03/17/2017 FINDINGS: The lungs are well expanded. There is a left-sided pacemaker. The heart is mildly enlarged. There is a small left pleural effusion. Pulmonary edema is slightly more pronounced on the prior exam. No consolidation. IMPRESSION: Mild worsening in the pulmonary edema.. Electronically signed by Zaki Holman 03/18/2017 6:42 AM
[2017-03-18] MEDS: CORDARONE PO SCH (08:51)
[2017-03-18] MEDS: CELEXA PO SCH (08:51)
[2017-03-18] MEDS: MIRALAX PO SCH (08:51)
[2017-03-18] MEDS: VENOFER 200 MG in NS 150 ML IV SCH (08:52)
[2017-03-18] MEDS: HEPARIN SUBQ SCH ×2 (08:52→20:25)
[2017-03-18] MEDS: LASIX IV SCH ×2 (08:52→20:25)
[2017-03-18] MEDS: ABILIFY PO SCH (08:52)
[2017-03-18] MEDS: ZOCOR PO SCH (08:52)
[2017-03-18] MEDS: ASPIRIN EC PO SCH (08:52)
[2017-03-18] MEDS: COLACE PO SCH ×2 (08:52→20:25)
[2017-03-18] MEDS: KLOR-CON PO SCH (08:52)
--- NOTE | 2017-03-18 09:12 | PROGRESS NOTE ---
DATE: 03/18/2017 SUBJECTIVE: Ms. Montelongo is awake. She had a good night. She is not working to breathe. Remains afebrile. OBJECTIVE: Temperature 98.1 degrees, pulse 80, respirations 24 and blood pressure 151/66. Pupils are equal and round. CVP appears to be less than 6 cm of water pressure from angle of Pablo. Lungs clear anterolateral. Cardiovascular: Regular rhythm rate without murmur or S3. Abdomen soft. Skin is warm and dry. Urine output 1500 mL. LABORATORY DATA: Lab reviewed from 03/15/2017: CBC stable. Hematocrit 29, stable, with an MCV of 100. Electrolytes: Sodium 143, potassium 4.5, chloride 99. BUN 52, creatinine 2.0; so creatinine has bumped up a little bit. Chest x-ray from this morning: Mild worsening of pulmonary edema. Lungs are well expanded. Left- sided pacemaker. Heart mildly enlarged. Small left pleural effusion. Pulmonary edema is slightly more pronounced than prior exam, according to report. ASSESSMENT AND PLAN: 1. Biventricular pacemaker placement. It appears to be functioning well. 2. Diastolic heart failure with pulmonary edema. 3. Underlying chronic obstructive pulmonary disease. 4. Chronic renal insufficiency. Creatinine has gone up a little bit. She has not really responded much to the diuretics. She will continue the BiPAP at night. REVIEW OF HER ORDERS: I think we should continue the Lasix 40 mg IV b.i.d., try and get her up out of bed and try to do some walking. Continue her amiodarone 200 mg a day. cc: Uriah Arrieta MD
--- NOTE | 2017-03-18 18:26 | PROGRESS NOTE ---
DATE: 03/18/2017 SUBJECTIVE: Patient continues with some shortness of breath but appears comfortable. There has been no chest pain. OBJECTIVE: Vital Signs: Blood pressure 145/66, heart rate 80, respiratory rate 28, oxygen saturation 96% on nasal cannula oxygen at 3 L. Neck: Jugular venous distention is evident consistent with significantly elevated central venous pressure Lungs: Auscultation chest reveals diminished breath sounds in the bases bilaterally. Cardiac Exam: Reveals a regular rate and rhythm without appreciable murmur or gallop. Extremities: Demonstrate mild pretibial edema. IMPRESSION: 1. Biventricular congestive heart failure with clinical evidence of right-sided heart failure greater than left-sided heart failure as evidenced by neck vein distention, pleural effusions and peripheral edema. 2. Chronic obstructive pulmonary disease with history of tendency for wheezing. Patient has a minimal smoking history. 3. Chronic kidney disease stage 4. 4. Left ventricular diastolic dysfunction. RECOMMENDATIONS: 1. Reviewing I's and O's she appears to be diuresing on current diuretic regimen. 2. Would obtain PA and lateral chest x-ray to try and discern the volume of apparent pleural effusions and consider merits of thoracentesis to try and expedite clinical improvement. 3. Chronic diastolic heart failure. 4. Atrial fibrillation. Patient is status post atrioventricular node ablation and permanent pacemaker implant. ECG on hospitalization appears to demonstrate atrial fibrillation and ventricular paced rhythm. 5. History of frequent falls. She has not been felt to be a suitable candidate for anticoagulation. RECOMMENDATIONS: 1. Continued IV Lasix to diurese at current rate. 2. PA and lateral chest x-ray to try and discern volume of pleural effusions to see if therapeutic thoracentesis might be helpful in expediting her clinical improvement. 3. Given persistent atrial fibrillation, would not continue amiodarone. 4. Given tendency for frequent falls, anticoagulation would appear to be hazardous more than beneficial. cc: Tay Mackenzie MD
[2017-03-19] MEDS: DUONEB (A & A) INH PRN ×6 (03:31→23:33)
[2017-03-19 06:16] LABS: CALCIUM 9.7 mg/dL (8.8-10.2); POTASSIUM 5.5 mmol/L (3.5-5.1)
--- NOTE | 2017-03-19 09:07 | PROGRESS NOTE ---
DATE: 03/19/2017 SUBJECTIVE: Ms. Montelongo does not sleep much at night. She wakes up every hour. I think she has some delirium, a little fear. Wants to pull her mask off. Seems to be a little better during the day. Her breathing seems to be a little better overall according to the family. PHYSICAL EXAMINATION: Vital Signs: Temperature is 97.9 degrees, pulse 80, respirations 26, blood pressure 147/60. CVP appears to be about 8 cm water pressure. Lungs: Clear anterolateral. Cardiovascular Examination: Regular rhythm and rate without murmur or S3. Abdomen: Soft. Skin: Warm and dry. Weight: 166 pounds. Is and Os: Urine output was 1300 mL. LAB: Hematocrit has remained stable. Last 1 was checked on the . Electrolytes today, sodium 143, potassium 5.5, chloride 100, BUN 49, creatinine 1.9, albumin 3.3. ASSESSMENT AND PLAN: 1. Biventricular congestive heart failure. Clinical evidence of right-sided heart failure greater than left side. Pleural effusions, peripheral edema, distended neck veins. Continue to try and diurese. 2. Chronic kidney disease stage IV. Creatinine has bumped up. Of course, have to be careful not to over-diurese and make renal function worse. 3. Chronic obstructive pulmonary disease with some reactive airway disease requiring BiPAP at night. 4. Left ventricular diastolic dysfunction. Radiographically, we are making very little improvement. Clinically, she seems to be feeling a little better. She has a history of atrial fibrillation, status post AV node ablation and permanent pacemaker. I am going to change up her medicines for nighttime. She was getting some Xanax to help her sleep. She is already on Abilify 5 mg daily. She is on Celexa 40 mg a day. I am going to see if maybe we could add trazodone at nighttime and see if that will help. cc: Uriah Arrieta MD
[2017-03-19] MEDS: HEPARIN SUBQ SCH ×2 (09:14→21:28)
[2017-03-19] MEDS: KLOR-CON PO SCH (09:14)
[2017-03-19] MEDS: CELEXA PO SCH (09:14)
[2017-03-19] MEDS: ABILIFY PO SCH (09:14)
[2017-03-19] MEDS: LASIX IV SCH ×2 (09:14→21:28)
[2017-03-19] MEDS: ASPIRIN EC PO SCH (09:14)
[2017-03-19] MEDS: COLACE PO SCH ×2 (09:15→21:28)
[2017-03-19] MEDS: ZOCOR PO SCH (09:15)
[2017-03-19] MEDS: MIRALAX PO SCH (09:15)
--- NOTE | 2017-03-19 11:00 | Diag Imaging Result Doc PS360 ---
EXAM: CHEST-2 VIEWS - 03/19/2017 HISTORY: hypoxia TECHNIQUE: Chest two views COMPARISON: One view chest of 03/18/2017 FINDINGS: There is stable borderline cardiomegaly. There is transvenous cardiac pacemaker again seen. There are findings of pulmonary edema with small left pleural effusion. Compared to previous exam, there is been some increase in basilar edema, but there is been interval decrease in upper lung vascular congestion. There is no pneumothorax seen. IMPRESSION: Pulmonary edema small left pleural effusion. Compared to the previous exam, there is been interval increase in basilar edema but there is been interval decrease in upper lung vascular congestion. Electronically signed by Fortino Santos 03/19/2017 10:58 AM
--- NOTE | 2017-03-19 18:33 | PROGRESS NOTE ---
DATE: 03/19/2017 SUBJECTIVE: Patient feeling somewhat better. She denies dyspnea on supplemental oxygen. She is apparently having some agitation at night. OBJECTIVE: Vital Signs: Blood pressure 133/72, heart rate 80, oxygen saturation 100% on nasal cannula. Neck: Jugular venous distention is evident consistent with significantly elevated central venous pressure. Chest: Auscultation of chest reveals limited inspiratory effort. Few bibasilar crackles. Cardiac: Reveals a regular rate and rhythm without appreciable murmur or gallop. Extremities: Demonstrate mild pretibial edema. LABORATORY DATA: Includes a BUN of 49, creatinine 1.9. Chest x-ray reports only small pleural effusion. IMPRESSION: 1. Acute on chronic congestive heart failure. This appears to be largely right-sided greater than left-sided. She also appears to have quite a tendency for hypoventilation as evidenced by hypercapnia. 2. Chronic lung disease with some tendency for wheezing. She has minimal smoking history. She has fairly significant kyphosis and very well may have restrictive lung physiology as well. 3. Chronic kidney disease stage 4. 4. Left ventricular diastolic dysfunction. RECOMMENDATIONS: Continue diuresis with intravenous Lasix. cc: Tay Mackenzie MD
[2017-03-19] MEDS ORDERED: DESYREL PO SCH (21:00)
[2017-03-19] MEDS: DESYREL PO PRN (21:45)
[2017-03-20] MEDS: DUONEB (A & A) INH PRN ×3 (07:34→19:24)
--- NOTE | 2017-03-20 08:17 | PROGRESS NOTE ---
DATE: 03/20/2017 SUBJECTIVE: Ms. Montelongo could not tolerate the BiPAP. The mask bothered her. She would take it off her face. She is breathing a little better. She is very weak. Has not walked much. Has not ambulated much. PHYSICAL EXAMINATION: Vital Signs: Temperature 98.4 degrees, pulse 80, respirations 18, blood pressure 130/48, weight 160 pounds. She is down from 166 on 03/18/2017. Lungs: Clear in all lung taylor. Cardiovascular Examination: Regular rhythm and rate without murmur or S3. Abdomen: Soft. Skin: Is warm and dry. Is and Os: Urine output 1800 mL. LAB: Chemistries from yesterday reviewed. Creatinine was 1.9. ASSESSMENT AND PLAN: 1. Acute on chronic congestive heart failure. Appears to be largely right-sided greater than the left, and has a tendency towards hypoventilation with hypercapnia. She does not seem to tolerate the BiPAP well, does not like it at night. We may have reached optimal volume pressure status at this point. 2. Chronic lung disease with some bronchospasm and wheezing. Aware. 3. Chronic kidney disease stage IV. Serum creatinine appears to be stable, about 1.9, 2. 4. Weakness, general deconditioning. Chest x-ray from yesterday, pulmonary edema, small left pleural effusion. We will try to increase activity. 5. Review of orders. She is on trazodone 25 mg that we tried last night. I am not sure if it helped or not. Zocor 10 mg a day, Lasix 40 mg IV b.i.d., Colace 100 mg b.i.d., Celexa 40 mg a day, aspirin 81 mg a day. cc: Uriah Arrieta MD
[2017-03-20] MEDS ORDERED: CYMBALTA PO SCH (09:00)
[2017-03-20] MEDS: ASPIRIN EC PO SCH (09:05)
[2017-03-20] MEDS: ZOCOR PO SCH (09:05)
[2017-03-20] MEDS: COLACE PO SCH ×2 (09:05→21:31)
[2017-03-20] MEDS: MIRALAX PO SCH (09:05)
[2017-03-20] MEDS: CELEXA PO SCH (09:05)
[2017-03-20] MEDS: HEPARIN SUBQ SCH ×2 (09:05→21:31)
[2017-03-20] MEDS: LASIX IV SCH ×2 (09:05→21:31)
[2017-03-21] MEDS: DESYREL PO PRN (01:34)
[2017-03-21] MEDS: DUONEB (A & A) INH PRN ×6 (01:38→23:05)
[2017-03-21] MEDS: MIRALAX PO SCH (08:51)
[2017-03-21] MEDS: CELEXA PO SCH (08:51)
[2017-03-21] MEDS: LASIX IV SCH ×2 (08:52→21:18)
[2017-03-21] MEDS: ASPIRIN EC PO SCH (08:52)
[2017-03-21] MEDS: COLACE PO SCH ×2 (08:52→21:19)
[2017-03-21] MEDS: HEPARIN SUBQ SCH ×2 (08:52→21:19)
[2017-03-21] MEDS: ZOCOR PO SCH (08:52)
--- NOTE | 2017-03-21 10:16 | Diag Imaging Result Doc PS360 ---
EXAM: CHEST-PORTABLE HISTORY: chf, pleural effusions TECHNIQUE: AP portable at 0945 COMMENT: There is hazy opacity over the lung bases particularly the left base. The heart size is slightly enlarged. Compared to the previous study of 03/19/2017 this has not changed significantly. IMPRESSION: Pulmonary edema with possible atelectasis or pneumonia in the left lower lobe. Electronically signed by Dennys Sylvester 03/21/2017 10:14 AM
--- NOTE | 2017-03-21 11:43 | PROGRESS NOTE ---
DATE: 03/21/2017 SUBJECTIVE: Ms. Montelongo is awake and alert. She feels good. She still gets short of breath with minimal exertion. She does not tolerate the BiPAP so she did not use it last night. Remains afebrile. OBJECTIVE: Vital signs: Temperature 98.1 degrees, pulse 76, respirations 18, blood pressure 136/52. O2 saturation 98%. HEENT: Pupils are equal and round. Lungs: Clear in all lung taylor. Cardiovascular: Regular rhythm and rate without murmur or S3. Abdomen: Soft. Skin: Warm and dry. Intake and output: Urine output looks like it was almost 2 L. LAB: From the , white count 9,600, hematocrit 29, platelet count 340,000. Chemistry: Sodium 143, potassium 5.5, chloride 100, BUN 49, creatinine 1.9. ASSESSMENT AND PLAN: 1. Acute on chronic congestive heart failure. Appears to be largely right-sided greater than left. Has a tendency towards hypoventilation and hypercapnia. We have diuresed her. Creatinine has bumped up a little bit but I think this is probably optimal for her pressure volume curve. Will plan on going home tomorrow. I did talk to the family. I think this is where we are going to stay. I do not think she will be able to do a lot as far as exertion and I think she would be eligible for hospice at some point, if they need more care. They would like to take her home. 2. Chronic lung disease which I think is stable. 3. Chronic kidney disease which is stage 4. Creatinine is hovering about 1.9. We have diuresed her but she continues to have some pleural effusions. We did a chest x-ray on the , pulmonary edema and small left pleural effusion. I am going to check another chest x-ray. I am going to see if we can get a PA and lateral. We will check electrolytes 1 more time in the morning and try and get her ready to go home. Of note, her proBNP is 4,517. I will check that again tomorrow. Her thyroid, we probably need to check that as well. So, we will check her thyroid levels in the morning as well. cc: Uriah Arrieta MD
[2017-03-21] MEDS ORDERED: XANAX PO ONE (22:47)
[2017-03-21] MEDS ORDERED: MYLICON PO ONE (22:47)
[2017-03-22] MEDS: DUONEB (A & A) INH PRN ×6 (02:44→23:02)
[2017-03-22 05:40] LABS: ALBUMIN 3.2 g/dL (3.5-5.0); CALCIUM 9.7 mg/dL (8.8-10.2); MAGNESIUM 2.3 mg/dL (1.5-2.7); POTASSIUM 4.3 mmol/L (3.5-5.1); TOTAL BILIRUBIN 0.29 mg/dL (0.20-1.00); TOTAL PROTEIN 5.9 g/dL (6.3-8.3)
[2017-03-22 05:53] LABS: FREE T4 1.44 ng/dL (0.93-1.70)
[2017-03-22] MEDS: CELEXA PO SCH (09:04)
[2017-03-22] MEDS: MIRALAX PO SCH (09:04)
[2017-03-22] MEDS: LASIX IV SCH ×2 (09:04→21:37)
[2017-03-22] MEDS: ASPIRIN EC PO SCH (09:05)
[2017-03-22] MEDS: ZOCOR PO SCH (09:05)
[2017-03-22] MEDS: HEPARIN SUBQ SCH ×2 (09:05→21:37)
[2017-03-22] MEDS: COLACE PO SCH ×2 (09:05→21:37)
--- NOTE | 2017-03-22 11:17 | PROGRESS NOTE ---
DATE: 03/22/2017 SUBJECTIVE: This patient states that she is feeling better. Today she is complaining of right upper extremity edema and pain and mild shortness of breath. Family members at the bedside, her daughter. I had a large conversation with the daughter about the patient's further plan and she has decided to go ahead and talk to the hospice team. I do believe this patient now is appropriate for that. I already talked to the social research assistant and they will talk to the family again. OBJECTIVE: Vital Signs: Temperature 97.6 degrees, pulse 81, respiratory rate 18, blood pressure 130/38. Oxygen saturation 100% on 4 L of nasal cannula. HEENT: Head normocephalic. No trauma. PERRLA. Neck: Supple. No JVD. No masses. Central trachea. Chest: Decreased breath sounds at the bases, with bilateral rales at the bases as well. Cardiovascular: Regular rate and rhythm. Abdomen: Soft, nontender, nondistended. No hepatosplenomegaly. Extremities: There is 2+ lower extremity edema. No clubbing. No cyanosis. Neurological Examination: The patient is alert and oriented x3. No focal neurological deficits. LABORATORY: Sodium 143, potassium 4.3, chloride 100, bicarbonate 35. BUN 46, creatinine 1.8. Glucose 107. Calcium 9.7. Pro-B-type natriuretic peptide 5214. ASSESSMENT AND PLAN: 1. Pulmonary edema. We repeated a chest x-ray yesterday that showed pulmonary edema with possible atelectasis on the left lower lobe. This patient has been getting furosemide twice a day. We will continue with the same treatment for now. 2. Likely diastolic heart failure. Continue with diuresis. 3. Chronic kidney disease. This is stage 4. Will continue to monitor. 4. Chronic obstructive pulmonary disease, not in exacerbation. Continue to monitor. Continue with breathing treatment. 5. Hypertension. Stable. 6. History of atrial fibrillation. She underwent a and ablation of the AV node and she is status post permanent pacemaker implantation with [employer] device on 02/21/2017. 7. Dyslipidemia. Continue with statins. 8. Constipation. Continue with stool softener. 9. Anxiety. Stable. This patient is getting citalopram and trazodone. 10. Anemia. I will ask for a new CBC tomorrow. DISPOSITION: I had a large conversation with the daughter about this patient, prognosis, and plan. They will go ahead and talk to the hospice team. I do believe this patient qualifies for hospice. The social research assistant is on board. cc: Charlie Babb MD
[2017-03-22] MEDS: DESYREL PO PRN (21:37)
--- NOTE | 2017-03-23 02:52 | Extremity Venous Study ---
PROCEDURE NAME: Venous U/S Left Arm - 03/22/2017 STUDY: Left upper extremity venous imaging study. REFERRING PHYSICIAN: Charlie Babb MD INTERPRETING PHYSICIAN: Javier Clark MD TECH: Warner. INDICATION: The patient has had a pacemaker placed 4 weeks ago, has left arm edema. The left upper extremity is imaged. The internal jugular, subclavian, axillary , basilic, brachial, proximal cephalic veins are imaged. Doppler was used to evaluate for spontaneity, phasicity,, respiratory excursion and distal augmentation. The right subclavian is imaged for comparison purposes. All veins identified are compressed. No intraluminal clot is seen. INTERPRETATION: No evidence of deep or superficial thrombosis in the left upper extremity in the veins identified. cc: MD Charlie Mancia MD [facility]
[2017-03-23] MEDS: DUONEB (A & A) INH PRN ×6 (03:43→23:00)
[2017-03-23 05:15] LABS: EOS# 0.45 X1000 (0.0-0.7); EOS% 4.5 % (0.0-10.0); HEMATOCRIT 29.4 % (37.0-47.0); HEMOGLOBIN 8.7 g/dL (12.0-16.0); IMM GRAN# 0.45 X1000 (0.0-0.04); IMM GRAN% 4.5 % (0.0-0.5); LYMPH# 2.39 X1000 (1.2-3.4); MANUAL DIFF NEEDED? YES; MCH 29.9 PG (27-31); MCHC 29.6 g/dL (33-37); MONO# 1.32 X1000 (0.11-0.59); MONO% 13.3 % (1.7-9.3); MPV 11.3 FL (7.4-10.4); NEUT% 51.7 % (42.2-75.2); PLT 231 X1000 (130-400); RBC 2.91 XMIL (4.2-5.4)
[2017-03-23 05:25] LABS: BANDS 8 % (0-1); EOS 2 % (1-10); LYMPHS 26 % (21-51); MONO 12 % (1-9)
[2017-03-23 05:36] LABS: CALCIUM 10.1 mg/dL (8.8-10.2); POTASSIUM 4.3 mmol/L (3.5-5.1)
[2017-03-23] MEDS: COLACE PO SCH ×2 (09:19→20:13)
[2017-03-23] MEDS: CELEXA PO SCH (09:19)
[2017-03-23] MEDS: LASIX IV SCH ×2 (09:19→20:13)
[2017-03-23] MEDS: MIRALAX PO SCH (09:19)
[2017-03-23] MEDS: ASPIRIN EC PO SCH (09:19)
[2017-03-23] MEDS: HEPARIN SUBQ SCH ×2 (09:19→20:13)
[2017-03-23] MEDS: ZOCOR PO SCH (09:19)
[2017-03-23] MEDS: DESYREL PO PRN (20:14)
[2017-03-24] MEDS: DUONEB (A & A) INH PRN ×3 (03:03→11:11)
[2017-03-24] MEDS: CELEXA PO SCH (08:23)
[2017-03-24] MEDS: COLACE PO SCH (08:23)
[2017-03-24] MEDS: HEPARIN SUBQ SCH (08:24)
[2017-03-24] MEDS: ASPIRIN EC PO SCH (08:24)
[2017-03-24] MEDS: MIRALAX PO SCH (08:24)
[2017-03-24] MEDS: LASIX IV SCH (08:24)
[2017-03-24] MEDS: ZOCOR PO SCH (08:24)
[2017-03-24] MEDS ORDERED: TUMS PO PRN (11:03)
[2017-03-24 11:37] VITALS: BP 131/63
--- NOTE | 2017-03-25 08:58 | DISCHARGE SUMMARY ---
ADMISSION DATE: 03/08/2017 DISCHARGE DATE: 03/24/2017 CONSULTATIONS: 1. Dr. Keven Nguyen with cardiology. 2. Dr. Brett Neff with Nephrology. PERTINENT PROCEDURES: 1. Echocardiogram showed aortic valve sclerosis with minimal stenosis. Ejection fraction of 65%. Grade 1 left ventricular diastolic dysfunction. 2. Extremity venous study showed no obvious superficial DVT noted to bilateral lower extremities. There is some mild pulsatility noted to the bilateral common femoral veins, which may represent central cardiac issue. 3. Renal ultrasound showed left renal cyst. 4. Left upper extremity venous ultrasound showed no evidence of deep or superficial thrombosis in the left upper extremity. DISCHARGE DIAGNOSES: 1. Pulmonary edema with repeat x-rays that continue to show pulmonary edema with atelectasis of the lower lobe. The patient continues to get IV Lasix. She will be transitioned to p.o. and discharged home with hospice. 2. Diastolic heart failure. Continue with p.o. Lasix. 3. Chronic kidney disease, stage 4, stable. 4. Chronic obstructive pulmonary disease without exacerbation. 5. Hypertension, stable. 6. Atrial fibrillation history. 7. Dyslipidemia. Continue statin. 8. Constipation. Continue stool softener. 9. Anxiety, stable. 10. Anemia, stable. DISPOSITION: Home with hospice. HOSPITAL COURSE: Briefly, Ms. Montelongo is an 86-year-old female, who carries a past medical history of COPD, hypertension, CHF, hypoglycemia, pacemaker placement secondary to atrial fibrillation, came to the ED with chief complaint of bilateral lower extremity edema and pain. The patient was admitted on 02/01/2017 at [facility] secondary to shortness of breath. She was discharged on 02/03/2017 but again she started having swelling at the beginning of the month. She went to see her primary computer forensic examiner. Dr. Nguyen, for the very first time the Monday prior to her admission. He adjusted her medications. Recommended that she come to the emergency room if the swelling continued to get worse. She has been taking her medications as prescribed even though she was doing that. She still began to have increased swelling with pain to the point that she could not walk. Patient was started on gentle diuresis. She was noted to have an acute kidney injury. Dr. Nguyen of Cardiology was consulted. She underwent bilateral lower extremity venous Dopplers that excluded deep or superficial thrombosis. She continued on IV diuresis b.i.d. throughout the duration of her hospital stay. They discontinued her Diltiazem and they felt that could be a factor to cause her pedal edema and placed her Toprol-XL. Dr. Neff was consulted for her acute kidney verses chronic kidney injury. He felt she was having significant 3rd spacing on the basis of her low albumin. He did add albumin as well as continued Lasix and observed her responses. The patient throughout her hospital stay continued to have pulmonary edema noted on chest x-rays. She continued to be diuresed with IV Lasix b.i.d. throughout her hospital stay. They did talk to the family about rehab, home health, versus hospice. At one point, they decided just to take the patient home. They did try to do BiPAP at night, however, she does not tolerate it. After speaking with the family more, they have decided to go home with hospice. They have chosen [facility] and will be discharged with [facility] today. VITAL SIGNS AT TIME OF HER DISCHARGE: Temperature is 97.5 degrees, heart rate 80, respirations 18, blood pressure 131/63, O2 is 98% on 2 L nasal cannula. DISCHARGE DIET: Healthy heart with Ensure. DISCHARGE MEDICATIONS: 1. Tylenol 650 mg p.o. q.6 hours p.r.n. 2. DuoNebs 3 mL inhaled as order. 3. Amiodarone 200 mg p.o. daily. 4. Aripiprazole 5 mg p.o. daily. 5. Aspirin 81 mg p.o. daily. 6. Celexa 40 mg p.o. daily. 7. Cardizem 240 b.i.d. 8. Colace 100 mg p.o. b.i.d. 9. Lasix 40 mg p.o. b.i.d. 10. Prilosec 20 mg p.o. b.i.d. 11. MiraLAX 17 g p.o. daily. 12. Potassium chloride 8 mEq p.o. daily. 13. Zocor 10 mg p.o. daily. 14. The patient will not be taking amiodarone or tactile exam at home. Those have been discontinued by Cardiology. FOLLOWUP: The patient is being discharged home with [facility] hosp[facility]. Dictated by WILL Torrez for Charlie Babb MD cc: MD Javier Tony MD [facility]
== END 2017-03-24 13:58 | disposition hospice, home (50) ==
LOC: ED 13:09 → 3N 16:49 → SUATTDRO 16:49 → 3S 03-11 13:19
PROVIDERS: ATTEND Internal Medicine